=== PATIENT | female | born 1955 | race Two or more races ===

== ENCOUNTER 2016-08-11 01:32 | Observation (INO) | payer MEDICARE, MEDICAID ==
[~2016-08-11] VITALS: Ht 154.9 cm; Wt 87.1 kg
[~2016-08-11 01:32] MED LIST: ACET-285 PO; BUDE160A3 INH; CLOP75TA28 PO; ERGO1CAP6 PO; ESOM40CA39 PO; EST0625T PO; FLUT50SP13; FURO20TA PO; INSUINJ37 SUBCUT; INSUINJ47 SC; LEVO25TA6 PO; LORA-352 PO; LORA2TAB10 PO; LOSA25TA9 PO; MECL-87 PO; NITR400A5 AD; NOR10T PO; ROSU40TA PO
[2016-08-11 02:09] LABS: Basophils # (auto) 0 uL; Basophils % (auto) 0.4 % (0.0-2.0); Eosinophils # (auto) 0.2 uL; Eosinophils % (auto) 2.8 % (0.0-7.0); Hematocrit 35.4 % (36.0-46.0); Hemoglobin 11.8 g/dL (12.2-16.2); Lymphocytes # (auto) 2.7 uL; Lymphocytes % (auto) 42.3 % (10.0-50.0); Mean Corpuscular Hemoglobin 29.2 pg (28.0-32.0); Mean Corpuscular Hgb Conc. 33.3 g/dL (32.0-36.0); Mean Corpuscular Volume 87.6 fL (80.0-100.0); Mean Platelet Volume 8.7 fL (7.4-10.4); Monocytes # (auto) 0.5 uL; Monocytes % (auto) 7.5 % (0.0-12.0); Platelet Count (auto) 207 10^3/uL (140-450); Red Cell Distribution Width 14.4 % (11.6-16.0); White Blood Cell 6.5 10^3/uL (4.4-10.8)
[2016-08-11 02:26] LABS: Albumin 3.4 g/dL (3.4-5.0); Anion Gap 8 (5-15); Aspartate Aminotransferase 13 U/L (15-37); Blood Urea Nitrogen 9 mg/dL (7-18); Calcium 8.2 mg/dL (8.5-10.1); Carbon Dioxide 26 mmol/L (21-32); Chloride 111 mmol/L (98-107); GFR African American 112 mL/min; GFR Non-African American 93 mL/min; Glucose 101 mg/dL (74-106); Magnesium 2.3 mg/dL (1.6-2.6); Potassium 3.7 mmol/L (3.5-5.1); Sodium 145 mmol/L (136-145)
[2016-08-11 02:31] LABS: Alkaline Phosphatase 79 U/L (45-117); Bilirubin, Total 0.6 mg/dL (0.2-1.0); Total Protein 7.1 g/dL (6.4-8.2)
[2016-08-11 02:39] LABS: B-Type Natriuretic Peptide 81.2 pg/mL (0-100); Temperature: 21.9 C (20.0-25.0)
[2016-08-11 02:55] LABS: Urine RBC None Seen /hpf (0 - 4)
[2016-08-11 03:09] LABS: Urine Bilirubin Negative (Negative); Urine Blood Negative /uL (Negative); Urine Color Yellow (Yellow); Urine Glucose Normal (Normal); Urine Ketone Negative (Negative); Urine Mucus FEW (None Seen); Urine Nitrite Negative (Negative); Urine Squamous Epithelial Cell FEW /hpf (<5)
[2016-08-11] MEDS ORDERED: FUROSEMIDE 40 MG/4 ML VIAL IV ONE (07:00)
[2016-08-11] MEDS ORDERED: SODIUM CHLORIDE 0.9% 1,000 ML IV ONE (09:15)
[2016-08-11] MEDS ORDERED: PANTOPRAZOLE SODIUM 40 MG/10 ML VIAL IV ONE (10:00)
[2016-08-11 10:12] VITALS: BP 120/67
== END 2016-08-11 11:05 | disposition home or self-care (01) | DRG 204 ==
LOC: ER 01:32 → OVERFLOW 09:47 → ER 11:05
PROVIDERS: ADMIT Emergency Medicine; ATTEND Emergency Medicine
DX: R06.02 Shortness of breath (principal); I13.0 Hypertensive heart and chronic kidney disease with heart failure and stage 1 through stage 4 chronic kidney disease, or unspecified chronic kidney disease; F41.9 Anxiety disorder, unspecified; J45.909 Unspecified asthma, uncomplicated; N18.3 Chronic kidney disease, stage 3 (moderate); I50.9 Heart failure, unspecified; F32.9 Major depressive disorder, single episode, unspecified; I25.10 Atherosclerotic heart disease of native coronary artery without angina pectoris; E78.5 Hyperlipidemia, unspecified; Z90.49 Acquired absence of other specified parts of digestive tract; Z79.899 Other long term (current) drug therapy; Z79.01 Long term (current) use of anticoagulants; Z79.4 Long term (current) use of insulin; E11.22 Type 2 diabetes mellitus with diabetic chronic kidney disease; E78.00 Pure hypercholesterolemia, unspecified
CPT/HCPCS: 36415; 71010; 80053; 81001; 82962; 83735; 83880; 84443; 84484; 85025; 93005; 96361; 96374; C9113; G0378

== ENCOUNTER 2016-08-30 01:15 | Emergency (ER) | payer MEDICARE, MEDICAID ==
[~2016-08-30] VITALS: Ht 154.9 cm; Wt 87.1 kg
[2016-08-30 02:35] LABS: Basophils # (auto) 0 uL; Basophils % (auto) 0.3 % (0.0-2.0); Eosinophils # (auto) 0.2 uL; Eosinophils % (auto) 2.8 % (0.0-7.0); Hematocrit 39.6 % (36.0-46.0); Hemoglobin 13.2 g/dL (12.2-16.2); Lymphocytes # (auto) 2.9 uL; Lymphocytes % (auto) 40.4 % (10.0-50.0); Mean Corpuscular Hemoglobin 29.2 pg (28.0-32.0); Mean Corpuscular Hgb Conc. 33.4 g/dL (32.0-36.0); Mean Corpuscular Volume 87.4 fL (80.0-100.0); Mean Platelet Volume 8.7 fL (7.4-10.4); Monocytes # (auto) 0.5 uL; Monocytes % (auto) 6.7 % (0.0-12.0); Neutrophils # (auto) 3.6 uL; Neutrophils % (auto) 49.8 % (37.0-80.0); Platelet Count (auto) 248 10^3/uL (140-450); Red Cell Distribution Width 14.3 % (11.6-16.0); White Blood Cell 7.3 10^3/uL (4.4-10.8)
[2016-08-30 03:12] LABS: Albumin 4.1 g/dL (3.4-5.0); BUN/Creatinine Ratio 13.1; Calcium 9.1 mg/dL (8.5-10.1); Potassium 3.9 mmol/L (3.5-5.1)
[2016-08-30 03:14] LABS: Bilirubin, Total 0.7 mg/dL (0.2-1.0); Total Protein 8.2 g/dL (6.4-8.2)
[2016-08-30 03:18] LABS: Urine RBC None Seen /hpf (0 - 4)
[2016-08-30 03:25] LABS: Urine Bilirubin Negative (Negative); Urine Blood Negative /uL (Negative); Urine Color Yellow (Yellow); Urine Glucose Normal (Normal); Urine Ketone Negative (Negative); Urine Mucus FEW (None Seen); Urine Nitrite Negative (Negative); Urine Squamous Epithelial Cell FEW /hpf (<5); Urine Urobilinogen Normal (Negative)
[2016-08-30 04:49] VITALS: BP 116/64
== END 2016-08-30 05:02 | disposition left against medical advice (07) ==
LOC: ER 01:17
DX: R42 Dizziness and giddiness (principal); I10 Essential (primary) hypertension; Z53.21 Procedure and treatment not carried out due to patient leaving prior to being seen by health care provider
CPT/HCPCS: 36415; 80053; 81001; 85025; 93005; G0434

== ENCOUNTER → 2016-11-24 | Outpatient (CLI) | payer MEDICARE, MEDICAID | END | disposition home or self-care (01) | LOC: Rad HDHVI 12:59 | PROVIDERS: ATTEND Internal Medicine Cardiovascular Disease | DX: E78.2 Mixed hyperlipidemia (principal); R07.89 Other chest pain | CPT/HCPCS: 93306 ==

== ENCOUNTER → 2016-12-01 | Outpatient (CLI) | payer MEDICARE, MEDICAID ==
[~2016-12-01] VITALS: Ht 154.9 cm; Wt 87.5 kg
[~2016-12-01] MED LIST changes: +ADENOSINE 74 MG in GIVE UN-DILUTED 0 ML IV ONE; +ADENOSINE 90 MG/30 ML INJ IV ONE
== END | disposition home or self-care (01) ==
LOC: Rad HDHVI 09:07
PROVIDERS: ATTEND Internal Medicine Cardiovascular Disease
DX: I11.0 Hypertensive heart disease with heart failure (principal); I50.42 Chronic combined systolic (congestive) and diastolic (congestive) heart failure; I25.2 Old myocardial infarction; E11.9 Type 2 diabetes mellitus without complications
CPT/HCPCS: 78452; 93005; 96374; 96375; A9500; J0153

== ENCOUNTER → 2017-01-02 | Outpatient (CLI) | payer MEDICARE, MEDICAID ==
[~2017-01-02] MED LIST changes: -ADENOSINE 74 MG in GIVE UN-DILUTED 0 ML IV ONE; -ADENOSINE 90 MG/30 ML INJ IV ONE
[2017-01-02 10:00] VITALS: BP_SYST 119; BP_SYST 128; BP_DIAS 63
[2017-01-02 11:40] VITALS: BP 132/66
[2017-01-02 12:05] VITALS: BP 128/63
== END | disposition home or self-care (01) ==
LOC: CHF HDHVI 09:04
PROVIDERS: ATTEND Internal Medicine Cardiovascular Disease
DX: I11.0 Hypertensive heart disease with heart failure (principal); I50.33 Acute on chronic diastolic (congestive) heart failure; I25.118 Atherosclerotic heart disease of native coronary artery with other forms of angina pectoris; R06.02 Shortness of breath; E11.9 Type 2 diabetes mellitus without complications; Z95.5 Presence of coronary angioplasty implant and graft
CPT/HCPCS: 93005; G0166; G0463

== ENCOUNTER → 2017-01-03 | Outpatient (CLI) | payer MEDICARE, MEDICAID ==
[2017-01-03 09:13] VITALS: BP_SYST 135; BP_SYST 138; BP_DIAS 55; BP_DIAS 60
== END | disposition home or self-care (01) ==
LOC: CHF HDHVI 09:07
PROVIDERS: ATTEND Internal Medicine Cardiovascular Disease
DX: I25.118 Atherosclerotic heart disease of native coronary artery with other forms of angina pectoris (principal); I11.0 Hypertensive heart disease with heart failure; I50.23 Acute on chronic systolic (congestive) heart failure; R06.02 Shortness of breath; E11.9 Type 2 diabetes mellitus without complications; Z98.61 Coronary angioplasty status
CPT/HCPCS: G0166

== ENCOUNTER → 2017-01-04 | Outpatient (CLI) | payer MEDICARE, MEDICAID ==
[2017-01-04 09:11] VITALS: BP_SYST 126; BP_SYST 132; BP_DIAS 44; BP_DIAS 60
== END | disposition home or self-care (01) ==
LOC: CHF HDHVI 09:00
PROVIDERS: ATTEND Internal Medicine Cardiovascular Disease
DX: I25.118 Atherosclerotic heart disease of native coronary artery with other forms of angina pectoris (principal); I13.0 Hypertensive heart and chronic kidney disease with heart failure and stage 1 through stage 4 chronic kidney disease, or unspecified chronic kidney disease; I50.33 Acute on chronic diastolic (congestive) heart failure; N18.3 Chronic kidney disease, stage 3 (moderate); E11.9 Type 2 diabetes mellitus without complications; R06.02 Shortness of breath; Z98.61 Coronary angioplasty status; Z90.710 Acquired absence of both cervix and uterus
CPT/HCPCS: G0166

== ENCOUNTER → 2017-01-05 | Outpatient (CLI) | payer MEDICARE, MEDICAID ==
[2017-01-05 09:30] VITALS: BP_SYST 123; BP_SYST 132; BP_DIAS 53; BP_DIAS 56
== END | disposition home or self-care (01) ==
LOC: CHF HDHVI 09:04
PROVIDERS: ATTEND Internal Medicine Cardiovascular Disease
DX: I25.118 Atherosclerotic heart disease of native coronary artery with other forms of angina pectoris (principal); I11.0 Hypertensive heart disease with heart failure; I50.33 Acute on chronic diastolic (congestive) heart failure; R06.02 Shortness of breath; E11.9 Type 2 diabetes mellitus without complications; Z98.61 Coronary angioplasty status
CPT/HCPCS: G0166

== ENCOUNTER → 2017-01-09 | Outpatient (CLI) | payer MEDICARE, MEDICAID ==
[2017-01-09 09:22] VITALS: BP_SYST 108; BP_SYST 110; BP_DIAS 48; BP_DIAS 56
== END | disposition home or self-care (01) ==
LOC: CHF HDHVI 09:20
PROVIDERS: ATTEND Internal Medicine Cardiovascular Disease
DX: I25.118 Atherosclerotic heart disease of native coronary artery with other forms of angina pectoris (principal); I13.0 Hypertensive heart and chronic kidney disease with heart failure and stage 1 through stage 4 chronic kidney disease, or unspecified chronic kidney disease; I50.33 Acute on chronic diastolic (congestive) heart failure; N18.9 Chronic kidney disease, unspecified; E11.9 Type 2 diabetes mellitus without complications; R06.02 Shortness of breath; Z98.61 Coronary angioplasty status; Z95.1 Presence of aortocoronary bypass graft
CPT/HCPCS: G0166

== ENCOUNTER → 2017-01-10 | Outpatient (CLI) | payer MEDICARE, MEDICAID ==
[2017-01-10 09:09] VITALS: BP_SYST 119; BP_SYST 143; BP_DIAS 47; BP_DIAS 60
== END | disposition home or self-care (01) ==
LOC: CHF HDHVI 09:18
PROVIDERS: ATTEND Internal Medicine Cardiovascular Disease
DX: I25.118 Atherosclerotic heart disease of native coronary artery with other forms of angina pectoris (principal); E11.9 Type 2 diabetes mellitus without complications; I13.0 Hypertensive heart and chronic kidney disease with heart failure and stage 1 through stage 4 chronic kidney disease, or unspecified chronic kidney disease; I50.33 Acute on chronic diastolic (congestive) heart failure; N18.9 Chronic kidney disease, unspecified; R06.02 Shortness of breath; Z98.61 Coronary angioplasty status
CPT/HCPCS: G0166

== ENCOUNTER → 2017-01-11 | Outpatient (CLI) | payer MEDICARE, MEDICAID ==
[2017-01-11 08:56] VITALS: BP_SYST 130; BP_SYST 134; BP_DIAS 52; BP_DIAS 60
== END | disposition home or self-care (01) ==
LOC: CHF HDHVI 09:18
PROVIDERS: ATTEND Internal Medicine Cardiovascular Disease
DX: I25.118 Atherosclerotic heart disease of native coronary artery with other forms of angina pectoris (principal); I50.33 Acute on chronic diastolic (congestive) heart failure; E11.9 Type 2 diabetes mellitus without complications; R06.02 Shortness of breath; Z98.61 Coronary angioplasty status
CPT/HCPCS: G0166

== ENCOUNTER → 2017-01-12 | Outpatient (CLI) | payer MEDICARE, MEDICAID ==
[2017-01-12 08:59] VITALS: BP_SYST 126; BP_SYST 138; BP_DIAS 53; BP_DIAS 65
== END | disposition home or self-care (01) ==
LOC: CHF HDHVI 08:53
PROVIDERS: ATTEND Internal Medicine Cardiovascular Disease
DX: I25.118 Atherosclerotic heart disease of native coronary artery with other forms of angina pectoris (principal); I50.33 Acute on chronic diastolic (congestive) heart failure; E11.9 Type 2 diabetes mellitus without complications; R06.02 Shortness of breath; Z98.61 Coronary angioplasty status
CPT/HCPCS: G0166

== ENCOUNTER → 2017-01-19 | Outpatient (CLI) | payer MEDICARE, MEDICAID ==
[2017-01-19 09:02] VITALS: BP_SYST 119; BP_SYST 128; BP_DIAS 48; BP_DIAS 65
== END | disposition home or self-care (01) ==
LOC: CHF HDHVI 09:06
PROVIDERS: ATTEND Internal Medicine Cardiovascular Disease
DX: I25.118 Atherosclerotic heart disease of native coronary artery with other forms of angina pectoris (principal); I11.0 Hypertensive heart disease with heart failure; I50.33 Acute on chronic diastolic (congestive) heart failure; E11.9 Type 2 diabetes mellitus without complications; Z98.61 Coronary angioplasty status
CPT/HCPCS: G0166

== ENCOUNTER → 2017-01-20 | Outpatient (CLI) | payer MEDICARE, MEDICAID ==
[2017-01-20 09:02] VITALS: BP_SYST 117; BP_SYST 126; BP_DIAS 48; BP_DIAS 54
== END | disposition home or self-care (01) ==
LOC: CHF HDHVI 08:51
PROVIDERS: ATTEND Internal Medicine Cardiovascular Disease
DX: I25.118 Atherosclerotic heart disease of native coronary artery with other forms of angina pectoris (principal); I13.0 Hypertensive heart and chronic kidney disease with heart failure and stage 1 through stage 4 chronic kidney disease, or unspecified chronic kidney disease; I50.33 Acute on chronic diastolic (congestive) heart failure; N18.3 Chronic kidney disease, stage 3 (moderate); E11.9 Type 2 diabetes mellitus without complications; R06.02 Shortness of breath; Z95.5 Presence of coronary angioplasty implant and graft
CPT/HCPCS: G0166

== ENCOUNTER → 2017-01-24 | Outpatient (CLI) | payer MEDICARE, MEDICAID ==
[2017-01-24 09:10] VITALS: BP_SYST 122; BP_SYST 132; BP_DIAS 48; BP_DIAS 58
== END | disposition home or self-care (01) ==
LOC: CHF HDHVI 09:05
PROVIDERS: ATTEND Internal Medicine Cardiovascular Disease
DX: I25.118 Atherosclerotic heart disease of native coronary artery with other forms of angina pectoris (principal); I13.0 Hypertensive heart and chronic kidney disease with heart failure and stage 1 through stage 4 chronic kidney disease, or unspecified chronic kidney disease; I50.33 Acute on chronic diastolic (congestive) heart failure; N18.3 Chronic kidney disease, stage 3 (moderate); R06.02 Shortness of breath; E11.9 Type 2 diabetes mellitus without complications
CPT/HCPCS: G0166

== ENCOUNTER → 2017-01-25 | Outpatient (CLI) | payer MEDICARE, MEDICAID ==
[2017-01-25 09:04] VITALS: BP_SYST 114; BP_SYST 115; BP_DIAS 50; BP_DIAS 53
== END | disposition home or self-care (01) ==
LOC: CHF HDHVI 08:59
PROVIDERS: ATTEND Internal Medicine Cardiovascular Disease
DX: I25.118 Atherosclerotic heart disease of native coronary artery with other forms of angina pectoris (principal); I50.33 Acute on chronic diastolic (congestive) heart failure; E11.9 Type 2 diabetes mellitus without complications; R06.02 Shortness of breath; Z98.61 Coronary angioplasty status
CPT/HCPCS: G0166

== ENCOUNTER → 2017-01-26 | Outpatient (CLI) | payer MEDICARE, MEDICAID ==
[2017-01-26 09:08] VITALS: BP_SYST 117; BP_SYST 128; BP_DIAS 53
== END | disposition home or self-care (01) ==
LOC: CHF HDHVI 08:58
PROVIDERS: ATTEND Internal Medicine Cardiovascular Disease
DX: I25.118 Atherosclerotic heart disease of native coronary artery with other forms of angina pectoris (principal); I13.0 Hypertensive heart and chronic kidney disease with heart failure and stage 1 through stage 4 chronic kidney disease, or unspecified chronic kidney disease; I50.33 Acute on chronic diastolic (congestive) heart failure; N18.3 Chronic kidney disease, stage 3 (moderate); E11.9 Type 2 diabetes mellitus without complications; Z98.61 Coronary angioplasty status
CPT/HCPCS: G0166

== ENCOUNTER → 2017-01-27 | Outpatient (CLI) | payer MEDICARE, MEDICAID ==
[2017-01-27 09:09] VITALS: BP_SYST 116; BP_SYST 138; BP_DIAS 48; BP_DIAS 72
== END | disposition home or self-care (01) ==
LOC: CHF HDHVI 09:03
PROVIDERS: ATTEND Internal Medicine Cardiovascular Disease
DX: I25.118 Atherosclerotic heart disease of native coronary artery with other forms of angina pectoris (principal); I50.33 Acute on chronic diastolic (congestive) heart failure; E11.9 Type 2 diabetes mellitus without complications; Z98.61 Coronary angioplasty status
CPT/HCPCS: G0166

== ENCOUNTER → 2017-01-30 | Outpatient (CLI) | payer MEDICARE, MEDICAID ==
[2017-01-30 09:05] VITALS: BP_SYST 110; BP_SYST 129; BP_DIAS 50; BP_DIAS 55
== END | disposition home or self-care (01) ==
LOC: CHF HDHVI 08:59
PROVIDERS: ATTEND Internal Medicine Cardiovascular Disease
DX: I25.118 Atherosclerotic heart disease of native coronary artery with other forms of angina pectoris (principal); I13.0 Hypertensive heart and chronic kidney disease with heart failure and stage 1 through stage 4 chronic kidney disease, or unspecified chronic kidney disease; I50.33 Acute on chronic diastolic (congestive) heart failure; N18.3 Chronic kidney disease, stage 3 (moderate); R06.02 Shortness of breath; E11.9 Type 2 diabetes mellitus without complications
CPT/HCPCS: G0166

== ENCOUNTER → 2017-01-31 | Outpatient (CLI) | payer MEDICARE, MEDICAID ==
[2017-01-31 09:17] VITALS: BP_SYST 116; BP_SYST 124; BP_DIAS 46; BP_DIAS 49
== END | disposition home or self-care (01) ==
LOC: CHF HDHVI 08:58
PROVIDERS: ATTEND Internal Medicine Cardiovascular Disease
DX: I25.118 Atherosclerotic heart disease of native coronary artery with other forms of angina pectoris (principal); I13.0 Hypertensive heart and chronic kidney disease with heart failure and stage 1 through stage 4 chronic kidney disease, or unspecified chronic kidney disease; I50.33 Acute on chronic diastolic (congestive) heart failure; N18.3 Chronic kidney disease, stage 3 (moderate); Z98.61 Coronary angioplasty status; E11.9 Type 2 diabetes mellitus without complications
CPT/HCPCS: G0166

== ENCOUNTER → 2017-02-01 | Outpatient (CLI) | payer MEDICARE, MEDICAID ==
[2017-02-01 09:13] VITALS: BP_SYST 115; BP_SYST 126; BP_DIAS 53; BP_DIAS 60
== END | disposition home or self-care (01) ==
LOC: CHF HDHVI 09:10
PROVIDERS: ATTEND Internal Medicine Cardiovascular Disease
DX: I25.118 Atherosclerotic heart disease of native coronary artery with other forms of angina pectoris (principal); I13.0 Hypertensive heart and chronic kidney disease with heart failure and stage 1 through stage 4 chronic kidney disease, or unspecified chronic kidney disease; I50.33 Acute on chronic diastolic (congestive) heart failure; N18.3 Chronic kidney disease, stage 3 (moderate); E11.9 Type 2 diabetes mellitus without complications; R06.02 Shortness of breath; Z98.61 Coronary angioplasty status
CPT/HCPCS: G0166

== ENCOUNTER → 2017-02-02 | Outpatient (CLI) | payer MEDICARE, MEDICAID ==
[2017-02-02 10:15] VITALS: BP_SYST 114; BP_SYST 123; BP_DIAS 48; BP_DIAS 61
== END | disposition home or self-care (01) ==
LOC: CHF HDHVI 09:03
PROVIDERS: ATTEND Internal Medicine Cardiovascular Disease
DX: I25.118 Atherosclerotic heart disease of native coronary artery with other forms of angina pectoris (principal); I13.0 Hypertensive heart and chronic kidney disease with heart failure and stage 1 through stage 4 chronic kidney disease, or unspecified chronic kidney disease; I50.33 Acute on chronic diastolic (congestive) heart failure; N18.3 Chronic kidney disease, stage 3 (moderate); E11.9 Type 2 diabetes mellitus without complications; Z98.61 Coronary angioplasty status
CPT/HCPCS: G0166

== ENCOUNTER → 2017-02-03 | Outpatient (CLI) | payer MEDICARE, MEDICAID ==
[2017-02-03 09:09] VITALS: BP_SYST 122; BP_SYST 132; BP_DIAS 55; BP_DIAS 60
== END | disposition home or self-care (01) ==
LOC: CHF HDHVI 09:12
PROVIDERS: ATTEND Internal Medicine Cardiovascular Disease
DX: I25.118 Atherosclerotic heart disease of native coronary artery with other forms of angina pectoris (principal); I13.0 Hypertensive heart and chronic kidney disease with heart failure and stage 1 through stage 4 chronic kidney disease, or unspecified chronic kidney disease; I50.33 Acute on chronic diastolic (congestive) heart failure; N18.3 Chronic kidney disease, stage 3 (moderate); E11.9 Type 2 diabetes mellitus without complications; R06.02 Shortness of breath; Z98.61 Coronary angioplasty status
CPT/HCPCS: G0166

== ENCOUNTER → 2017-02-06 | Outpatient (CLI) | payer MEDICARE, MEDICAID ==
[2017-02-06 09:03] VITALS: BP_SYST 112; BP_SYST 116; BP_DIAS 42; BP_DIAS 52
== END | disposition home or self-care (01) ==
LOC: CHF HDHVI 09:09
PROVIDERS: ATTEND Internal Medicine Cardiovascular Disease
DX: I25.118 Atherosclerotic heart disease of native coronary artery with other forms of angina pectoris (principal); I13.0 Hypertensive heart and chronic kidney disease with heart failure and stage 1 through stage 4 chronic kidney disease, or unspecified chronic kidney disease; I50.33 Acute on chronic diastolic (congestive) heart failure; N18.3 Chronic kidney disease, stage 3 (moderate); Z98.61 Coronary angioplasty status; R06.02 Shortness of breath; E11.9 Type 2 diabetes mellitus without complications
CPT/HCPCS: G0166

== ENCOUNTER → 2017-02-07 | Outpatient (CLI) | payer MEDICARE, MEDICAID ==
[2017-02-07 09:11] VITALS: BP_SYST 110; BP_SYST 113; BP_DIAS 55; BP_DIAS 57
== END | disposition home or self-care (01) ==
LOC: CHF HDHVI 09:00
PROVIDERS: ATTEND Internal Medicine Cardiovascular Disease
DX: I25.118 Atherosclerotic heart disease of native coronary artery with other forms of angina pectoris (principal); I13.0 Hypertensive heart and chronic kidney disease with heart failure and stage 1 through stage 4 chronic kidney disease, or unspecified chronic kidney disease; I50.33 Acute on chronic diastolic (congestive) heart failure; N18.3 Chronic kidney disease, stage 3 (moderate); R06.02 Shortness of breath; E11.9 Type 2 diabetes mellitus without complications; Z98.61 Coronary angioplasty status
CPT/HCPCS: G0166

== ENCOUNTER → 2017-02-09 | Outpatient (CLI) | payer MEDICARE, MEDICAID ==
[2017-02-09 09:04] VITALS: BP_SYST 110; BP_SYST 115; BP_DIAS 49; BP_DIAS 58
== END | disposition home or self-care (01) ==
LOC: CHF HDHVI 08:59
PROVIDERS: ATTEND Internal Medicine Cardiovascular Disease
DX: I25.118 Atherosclerotic heart disease of native coronary artery with other forms of angina pectoris (principal); I13.0 Hypertensive heart and chronic kidney disease with heart failure and stage 1 through stage 4 chronic kidney disease, or unspecified chronic kidney disease; I50.33 Acute on chronic diastolic (congestive) heart failure; N18.3 Chronic kidney disease, stage 3 (moderate); E11.9 Type 2 diabetes mellitus without complications; Z98.61 Coronary angioplasty status
CPT/HCPCS: G0166

== ENCOUNTER → 2017-02-10 | Outpatient (CLI) | payer MEDICARE, MEDICAID ==
[2017-02-10 09:07] VITALS: BP_SYST 118; BP_DIAS 47; BP_DIAS 56
== END | disposition home or self-care (01) ==
LOC: CHF HDHVI 09:04
PROVIDERS: ATTEND Internal Medicine Cardiovascular Disease
DX: I25.118 Atherosclerotic heart disease of native coronary artery with other forms of angina pectoris (principal); I13.0 Hypertensive heart and chronic kidney disease with heart failure and stage 1 through stage 4 chronic kidney disease, or unspecified chronic kidney disease; I50.33 Acute on chronic diastolic (congestive) heart failure; N18.3 Chronic kidney disease, stage 3 (moderate); R06.02 Shortness of breath; E11.9 Type 2 diabetes mellitus without complications; Z98.61 Coronary angioplasty status
CPT/HCPCS: G0166

== ENCOUNTER → 2017-02-13 | Outpatient (CLI) | payer MEDICARE, MEDICAID ==
[2017-02-13 09:06] VITALS: BP_SYST 110; BP_DIAS 43; BP_DIAS 58
== END | disposition home or self-care (01) ==
LOC: CHF HDHVI 08:54
PROVIDERS: ATTEND Internal Medicine Cardiovascular Disease
DX: I25.118 Atherosclerotic heart disease of native coronary artery with other forms of angina pectoris (principal); I50.33 Acute on chronic diastolic (congestive) heart failure; E11.9 Type 2 diabetes mellitus without complications; Z98.61 Coronary angioplasty status
CPT/HCPCS: G0166

== ENCOUNTER → 2017-02-14 | Outpatient (CLI) | payer MEDICARE, MEDICAID ==
[2017-02-14 08:57] VITALS: BP_SYST 122; BP_DIAS 46; BP_DIAS 58
== END | disposition home or self-care (01) ==
LOC: CHF HDHVI 08:55
PROVIDERS: ATTEND Internal Medicine Cardiovascular Disease
DX: I25.118 Atherosclerotic heart disease of native coronary artery with other forms of angina pectoris (principal); I50.33 Acute on chronic diastolic (congestive) heart failure; E11.9 Type 2 diabetes mellitus without complications; Z95.1 Presence of aortocoronary bypass graft; Z98.61 Coronary angioplasty status
CPT/HCPCS: G0166

== ENCOUNTER → 2017-02-15 | Outpatient (CLI) | payer MEDICARE, MEDICAID ==
[2017-02-15 09:11] VITALS: BP_SYST 110; BP_SYST 114; BP_DIAS 55; BP_DIAS 56
== END | disposition home or self-care (01) ==
LOC: CHF HDHVI 08:56
PROVIDERS: ATTEND Internal Medicine Cardiovascular Disease
DX: I25.118 Atherosclerotic heart disease of native coronary artery with other forms of angina pectoris (principal); I50.33 Acute on chronic diastolic (congestive) heart failure; E11.9 Type 2 diabetes mellitus without complications; R06.02 Shortness of breath; Z98.61 Coronary angioplasty status; Z95.1 Presence of aortocoronary bypass graft
CPT/HCPCS: G0166

== ENCOUNTER → 2017-02-16 | Outpatient (CLI) | payer MEDICARE, MEDICAID ==
[2017-02-16 09:12] VITALS: BP_SYST 126; BP_SYST 135; BP_DIAS 61; BP_DIAS 65
== END | disposition home or self-care (01) ==
LOC: CHF HDHVI 09:02
PROVIDERS: ATTEND Internal Medicine Cardiovascular Disease
DX: I25.118 Atherosclerotic heart disease of native coronary artery with other forms of angina pectoris (principal); I13.0 Hypertensive heart and chronic kidney disease with heart failure and stage 1 through stage 4 chronic kidney disease, or unspecified chronic kidney disease; I50.33 Acute on chronic diastolic (congestive) heart failure; N18.3 Chronic kidney disease, stage 3 (moderate); E11.9 Type 2 diabetes mellitus without complications; R06.02 Shortness of breath; Z98.61 Coronary angioplasty status
CPT/HCPCS: G0166

== ENCOUNTER → 2017-02-17 | Outpatient (CLI) | payer MEDICARE, MEDICAID ==
[2017-02-17 09:08] VITALS: BP_SYST 121; BP_SYST 128; BP_DIAS 57; BP_DIAS 59
== END | disposition home or self-care (01) ==
LOC: CHF HDHVI 08:48
PROVIDERS: ATTEND Internal Medicine Cardiovascular Disease
DX: I25.118 Atherosclerotic heart disease of native coronary artery with other forms of angina pectoris (principal); I13.0 Hypertensive heart and chronic kidney disease with heart failure and stage 1 through stage 4 chronic kidney disease, or unspecified chronic kidney disease; I50.33 Acute on chronic diastolic (congestive) heart failure; N18.3 Chronic kidney disease, stage 3 (moderate); E11.9 Type 2 diabetes mellitus without complications; R06.02 Shortness of breath; Z98.61 Coronary angioplasty status
CPT/HCPCS: G0166

== ENCOUNTER → 2017-02-20 | Outpatient (CLI) | payer MEDICARE, MEDICAID ==
[2017-02-20 09:31] VITALS: BP_SYST 113; BP_SYST 137; BP_DIAS 61
== END | disposition home or self-care (01) ==
LOC: CHF HDHVI 09:07
PROVIDERS: ATTEND Internal Medicine Cardiovascular Disease
DX: I25.118 Atherosclerotic heart disease of native coronary artery with other forms of angina pectoris (principal); I13.0 Hypertensive heart and chronic kidney disease with heart failure and stage 1 through stage 4 chronic kidney disease, or unspecified chronic kidney disease; I50.33 Acute on chronic diastolic (congestive) heart failure; N18.3 Chronic kidney disease, stage 3 (moderate); R06.02 Shortness of breath; E11.9 Type 2 diabetes mellitus without complications; Z98.61 Coronary angioplasty status; Z95.1 Presence of aortocoronary bypass graft
CPT/HCPCS: G0166

== ENCOUNTER → 2017-02-21 | Outpatient (CLI) | payer MEDICARE, MEDICAID ==
[2017-02-21 09:01] VITALS: BP_SYST 113; BP_SYST 115; BP_DIAS 59; BP_DIAS 60
== END | disposition home or self-care (01) ==
LOC: CHF HDHVI 09:11
PROVIDERS: ATTEND Internal Medicine Cardiovascular Disease
DX: I25.118 Atherosclerotic heart disease of native coronary artery with other forms of angina pectoris (principal); I50.33 Acute on chronic diastolic (congestive) heart failure; I13.0 Hypertensive heart and chronic kidney disease with heart failure and stage 1 through stage 4 chronic kidney disease, or unspecified chronic kidney disease; R06.02 Shortness of breath; E11.9 Type 2 diabetes mellitus without complications; Z98.61 Coronary angioplasty status; N18.3 Chronic kidney disease, stage 3 (moderate); I50.9 Heart failure, unspecified
CPT/HCPCS: G0166

== ENCOUNTER → 2017-02-22 | Outpatient (CLI) | payer MEDICARE, MEDICAID ==
[2017-02-22 09:12] VITALS: BP_SYST 110; BP_SYST 112; BP_DIAS 49; BP_DIAS 60
[2017-02-22 10:15] VITALS: BP 126/65
== END | disposition home or self-care (01) ==
LOC: CHF HDHVI 09:04
PROVIDERS: ATTEND Internal Medicine Cardiovascular Disease
DX: I13.0 Hypertensive heart and chronic kidney disease with heart failure and stage 1 through stage 4 chronic kidney disease, or unspecified chronic kidney disease (principal); I25.118 Atherosclerotic heart disease of native coronary artery with other forms of angina pectoris; I50.33 Acute on chronic diastolic (congestive) heart failure; N18.3 Chronic kidney disease, stage 3 (moderate); E11.9 Type 2 diabetes mellitus without complications; R06.02 Shortness of breath; Z98.61 Coronary angioplasty status
CPT/HCPCS: G0166; G0463

== ENCOUNTER → 2017-04-26 | Outpatient (CLI) | payer MEDICARE, MEDICAID ==
[~2017-04-26] VITALS: Ht 154.9 cm; Wt 87.1 kg
[~2017-04-26] MED LIST changes: +ADENOSINE 73 MG in GIVE UN-DILUTED 0 ML IV ONE; +ADENOSINE 90 MG/30 ML INJ IV ONE
== END | disposition home or self-care (01) ==
LOC: Rad HDHVI 09:42
PROVIDERS: ATTEND Internal Medicine Cardiovascular Disease
DX: E11.9 Type 2 diabetes mellitus without complications (principal); N39.0 Urinary tract infection, site not specified; K81.9 Cholecystitis, unspecified
CPT/HCPCS: 78452; 93005; 96374; 96375; A9500; J0153

== ENCOUNTER → 2017-05-17 | Outpatient (CLI) | payer MEDICARE, MEDICAID ==
[~2017-05-17] MED LIST changes: -ADENOSINE 73 MG in GIVE UN-DILUTED 0 ML IV ONE; -ADENOSINE 90 MG/30 ML INJ IV ONE; +READI-CAT 2 (BARIUM SULF)(VANILLA SMOOTHIE) 450ML ONE
== END | disposition home or self-care (01) ==
LOC: Rad HDHVI 09:18
PROVIDERS: ATTEND Internal Medicine Cardiovascular Disease
DX: K44.9 Diaphragmatic hernia without obstruction or gangrene (principal); I70.0 Atherosclerosis of aorta; D71 Functional disorders of polymorphonuclear neutrophils
CPT/HCPCS: 71250

== ENCOUNTER → 2017-06-07 | Outpatient (CLI) | payer MEDICARE, MEDICAID ==
[~2017-06-07] MED LIST changes: -READI-CAT 2 (BARIUM SULF)(VANILLA SMOOTHIE) 450ML ONE
== END | disposition home or self-care (01) ==
LOC: Rad HDHVI 10:37
PROVIDERS: ATTEND Internal Medicine Cardiovascular Disease
DX: J32.9 Chronic sinusitis, unspecified (principal)
CPT/HCPCS: 70220

== ENCOUNTER → 2017-09-01 | Outpatient (CLI) | payer MEDICARE, MEDICAID ==
[2017-09-01 12:16] LABS: Basophils # (auto) 0 uL; Basophils % (auto) 0.2 % (0.0-2.0); Eosinophils # (auto) 0.1 uL; Eosinophils % (auto) 1.3 % (0.0-7.0); Hematocrit 37.7 % (36.0-46.0); Hemoglobin 12.6 g/dL (12.2-16.2); Lymphocytes % (auto) 36.3 % (10.0-50.0); Mean Corpuscular Hemoglobin 30.2 pg (28.0-32.0); Mean Corpuscular Hgb Conc. 33.5 g/dL (32.0-36.0); Mean Corpuscular Volume 90.1 fL (80.0-100.0); Monocytes # (auto) 0.4 uL; Monocytes % (auto) 6.9 % (0.0-12.0); Neutrophils # (auto) 3.1 uL; Neutrophils % (auto) 55.3 % (37.0-80.0); Nucleated Red Blood Cells % 0.1 %; Platelet Count (auto) 169 10^3/uL (140-450); Red Blood Cells 4.19 10^6/uL (4.0-5.20); Red Cell Distribution Width 15.2 % (11.8-14.3); White Blood Cell 5.6 10^3/uL (4.4-10.8)
[2017-09-01 12:19] LABS: Urine Blood Negative /uL (Negative); Urine Specific Gravity 1.027 (1.001-1.035)
[2017-09-01 12:48] LABS: Albumin 3.3 g/dL (3.4-5.0); BUN/Creatinine Ratio 25.8; Bilirubin, Total 0.3 mg/dL (0.2-1.0); Calcium 8.8 mg/dL (8.5-10.1); Potassium 3.9 mmol/L (3.5-5.1); Total Protein 7.3 g/dL (6.4-8.2)
[2017-09-01 12:59] LABS: Free T4 (Free Thyroxine) 1.11 ng/dL (0.89-1.76)
== END | disposition home or self-care (01) ==
LOC: LAB 08:55
PROVIDERS: ATTEND Internal Medicine Cardiovascular Disease
DX: E78.5 Hyperlipidemia, unspecified (principal); E03.9 Hypothyroidism, unspecified; I12.9 Hypertensive chronic kidney disease with stage 1 through stage 4 chronic kidney disease, or unspecified chronic kidney disease; E11.22 Type 2 diabetes mellitus with diabetic chronic kidney disease; N18.3 Chronic kidney disease, stage 3 (moderate); D63.1 Anemia in chronic kidney disease; E55.9 Vitamin D deficiency, unspecified; D51.9 Vitamin B12 deficiency anemia, unspecified; N39.0 Urinary tract infection, site not specified
CPT/HCPCS: 36415; 80053; 80061; 81003; 82306; 82607; 82962; 83036; 84439; 84443; 85025

== ENCOUNTER → 2017-09-04 | Outpatient (CLI) | payer MEDICARE, MEDICAID | END | disposition home or self-care (01) | LOC: Rad HDHVI 16:13 | PROVIDERS: ATTEND Internal Medicine Cardiovascular Disease | DX: R07.9 Chest pain, unspecified (principal); E11.22 Type 2 diabetes mellitus with diabetic chronic kidney disease; I12.9 Hypertensive chronic kidney disease with stage 1 through stage 4 chronic kidney disease, or unspecified chronic kidney disease; N18.3 Chronic kidney disease, stage 3 (moderate); E78.5 Hyperlipidemia, unspecified; N39.0 Urinary tract infection, site not specified | CPT/HCPCS: 93306 ==

== ENCOUNTER → 2017-11-14 | Outpatient (CLI) | payer MEDICARE, MEDICAID | END | disposition home or self-care (01) | LOC: Rad HDHVI 11:48 | PROVIDERS: ATTEND Internal Medicine Cardiovascular Disease | DX: M85.9 Disorder of bone density and structure, unspecified (principal); I13.0 Hypertensive heart and chronic kidney disease with heart failure and stage 1 through stage 4 chronic kidney disease, or unspecified chronic kidney disease; E11.22 Type 2 diabetes mellitus with diabetic chronic kidney disease; I50.9 Heart failure, unspecified; N18.3 Chronic kidney disease, stage 3 (moderate); E03.9 Hypothyroidism, unspecified; I25.10 Atherosclerotic heart disease of native coronary artery without angina pectoris; F41.9 Anxiety disorder, unspecified; E78.00 Pure hypercholesterolemia, unspecified; Z79.01 Long term (current) use of anticoagulants; Z79.4 Long term (current) use of insulin; Z79.899 Other long term (current) drug therapy | CPT/HCPCS: 77078 ==

== ENCOUNTER 2017-12-19 12:05 | Day surgery (SDC) | payer MEDICARE, MEDICAID ==
[~2017-12-19] VITALS: Ht 154.9 cm; Wt 88.6 kg
[~2017-12-19 12:05] MED LIST changes: -BUDE160A3 INH; +DOCU-137 PO; -ERGO1CAP6 PO; +FOLI1TAB6 PO; -LORA-352 PO; -MECL-87 PO; -NITR400A5 AD; -NOR10T PO
[2017-12-19] MEDS ORDERED: LIDOCAINE 2%HCL (LOCAL ANESTH.) INJ 10ml MDV ONE (12:40)
[2017-12-19] MEDS ORDERED: IOHEXOL 350 MG/ML 100ML IJ ONE (12:40)
[2017-12-19] MEDS ORDERED: ANGIOMAX 250 MG VIAL IV ONE (12:43)
[2017-12-19] MEDS ORDERED: MIDAZOLAM HCL 1MG/1ML-2 ML VIAL ONE (12:44)
[2017-12-19] MEDS ORDERED: SODIUM CHL 0.9% 0 ML ONE (12:44)
[2017-12-19] MEDS ORDERED: fentaNYL CITRATE 100 MCG/2 ML VL ONE (12:44)
== END 2017-12-19 15:38 | disposition home or self-care (01) ==
LOC: CATH 12:05
PROVIDERS: ATTEND Internal Medicine Cardiovascular Disease
DX: I25.10 Atherosclerotic heart disease of native coronary artery without angina pectoris (principal); R94.39 Abnormal result of other cardiovascular function study; I11.0 Hypertensive heart disease with heart failure; I50.9 Heart failure, unspecified; E11.9 Type 2 diabetes mellitus without complications; G47.30 Sleep apnea, unspecified; E78.5 Hyperlipidemia, unspecified; E66.9 Obesity, unspecified; Z68.36 Body mass index [BMI] 36.0-36.9, adult; Z88.0 Allergy status to penicillin; Z88.2 Allergy status to sulfonamides; Z88.1 Allergy status to other antibiotic agents; Z90.710 Acquired absence of both cervix and uterus; Q24.9 Congenital malformation of heart, unspecified; F41.9 Anxiety disorder, unspecified; F32.9 Major depressive disorder, single episode, unspecified; Z79.899 Other long term (current) drug therapy; Z98.62 Peripheral vascular angioplasty status
CPT/HCPCS: 93454; C1760; C1894; J1644; J2001; J2250; J3010; J7030; Q9967; 99152; A6257

== ENCOUNTER → 2017-12-28 | Outpatient (CLI) | payer MEDICARE, MEDICAID ==
[~2017-12-28] MED LIST changes: +READI-CAT 2 (BARIUM SULF)(VANILLA SMOOTHIE) 450ML ONE
[2017-12-28 14:23] LABS: Basophils # (auto) 0 uL; Basophils % (auto) 0.3 % (0.0-2.0); Eosinophils # (auto) 0.1 uL; Hematocrit 36.8 % (36.0-46.0); Hemoglobin 12.2 g/dL (12.2-16.2); Lymphocytes # (auto) 1.8 uL; Lymphocytes % (auto) 32.2 % (10.0-50.0); Mean Corpuscular Hemoglobin 30.2 pg (28.0-32.0); Mean Corpuscular Hgb Conc. 33.2 g/dL (32.0-36.0); Mean Corpuscular Volume 90.7 fL (80.0-100.0); Monocytes # (auto) 0.3 uL; Monocytes % (auto) 4.9 % (0.0-12.0); Neutrophils # (auto) 3.4 uL; Neutrophils % (auto) 61.6 % (37.0-80.0); Platelet Count (auto) 197 10^3/uL (140-450); Red Blood Cells 4.06 10^6/uL (4.0-5.20); Red Cell Distribution Width 14.2 % (11.8-14.3); White Blood Cell 5.6 10^3/uL (4.4-10.8)
[2017-12-28 14:34] LABS: Albumin 3.4 g/dL (3.4-5.0); BUN/Creatinine Ratio 18.7; Calcium 8.8 mg/dL (8.5-10.1); Potassium 4.1 mmol/L (3.5-5.1)
[2017-12-28 14:37] LABS: Bilirubin, Total 0.6 mg/dL (0.2-1.0); Total Protein 7.4 g/dL (6.4-8.2)
[2017-12-28 15:57] LABS: Urine Blood Negative /uL (Negative); Urine Specific Gravity 1.014 (1.001-1.035)
== END | disposition home or self-care (01) ==
LOC: Rad HDHVI 13:13
PROVIDERS: ATTEND Internal Medicine Cardiovascular Disease
DX: I13.0 Hypertensive heart and chronic kidney disease with heart failure and stage 1 through stage 4 chronic kidney disease, or unspecified chronic kidney disease (principal); E11.22 Type 2 diabetes mellitus with diabetic chronic kidney disease; I50.9 Heart failure, unspecified; N18.3 Chronic kidney disease, stage 3 (moderate); N39.0 Urinary tract infection, site not specified; I25.10 Atherosclerotic heart disease of native coronary artery without angina pectoris; E78.5 Hyperlipidemia, unspecified; E78.00 Pure hypercholesterolemia, unspecified; Z79.4 Long term (current) use of insulin; Z79.899 Other long term (current) drug therapy; Z79.01 Long term (current) use of anticoagulants; Z90.49 Acquired absence of other specified parts of digestive tract
CPT/HCPCS: 36415; 74176; 80053; 81003; 85025; 87086

== ENCOUNTER → 2018-08-13 | Outpatient (CLI) | payer MEDICARE, MEDICAID ==
[~2018-08-13] MED LIST changes: -DOCU-137 PO; +DOCU1CAP54 PO; +INSLANTI SC; +LOSA25TA40 PO; -LOSA25TA9 PO; -READI-CAT 2 (BARIUM SULF)(VANILLA SMOOTHIE) 450ML ONE
[2018-08-13 16:08] LABS: Basophils # (auto) 0 uL; Basophils % (auto) 0.3 % (0.0-2.0); Eosinophils # (auto) 0.1 uL; Eosinophils % (auto) 2.2 % (0.0-7.0); Hematocrit 38.6 % (36.0-46.0); Hemoglobin 12.7 g/dL (12.2-16.2); Lymphocytes # (auto) 1.6 uL; Lymphocytes % (auto) 30.4 % (10.0-50.0); Mean Corpuscular Hemoglobin 29.5 pg (28.0-32.0); Mean Corpuscular Volume 89.4 fL (80.0-100.0); Monocytes # (auto) 0.4 uL; Monocytes % (auto) 6.7 % (0.0-12.0); Neutrophils # (auto) 3.3 uL; Neutrophils % (auto) 60.4 % (37.0-80.0); Nucleated Red Blood Cells % 0.3 %; Platelet Count (auto) 161 10^3/uL (140-450); Red Blood Cells 4.31 10^6/uL (4.0-5.20); Red Cell Distribution Width 14.6 % (11.8-14.3); Urine Blood Negative /uL (Negative); Urine Specific Gravity 1.014 (1.001-1.035); White Blood Cell 5.4 10^3/uL (4.4-10.8)
[2018-08-13 16:19] LABS: Albumin 3.7 g/dL (3.4-5.0); Anion Gap 5 (5-15); Aspartate Aminotransferase 14 U/L (15-37); Blood Urea Nitrogen 17 mg/dL (7-18); Carbon Dioxide 24 mmol/L (21-32); Chloride 110 mmol/L (98-107); Glucose 159 mg/dL (74-106); Potassium 4.1 mmol/L (3.5-5.1); Sodium 139 mmol/L (136-145)
[2018-08-13 16:22] LABS: Alanine Aminotransferase 24 U/L (13-56); Alkaline Phosphatase 76 U/L (45-117); BUN/Creatinine Ratio 21.5; Bilirubin, Direct < 0.1 mg/dL (0-0.2); Bilirubin, Total 0.5 mg/dL (0.2-1.0); Cholesterol 184 mg/dL (< 200); GFR African American 95 mL/min; GFR Non-African American 79 mL/min; HDL Cholesterol 57 mg/dL (40-59); LDL Cholesterol 112 mg/dL (< 100); Total Protein 7.6 g/dL (6.4-8.2); Triglycerides 217 mg/dL (< 150)
== END | disposition home or self-care (01) ==
LOC: LAB 11:05
PROVIDERS: ATTEND Internal Medicine Cardiovascular Disease
DX: K74.1 Hepatic sclerosis (principal); E11.9 Type 2 diabetes mellitus without complications; N39.0 Urinary tract infection, site not specified; E03.9 Hypothyroidism, unspecified; D51.9 Vitamin B12 deficiency anemia, unspecified
CPT/HCPCS: 36415; 80048; 80061; 80076; 81003; 82306; 83036; 84443; 85025

== ENCOUNTER → 2018-08-16 | Outpatient (CLI) | payer MEDICARE, MEDICAID | END | disposition home or self-care (01) | LOC: Rad HDHVI 10:05 | PROVIDERS: ATTEND Internal Medicine Cardiovascular Disease | DX: I20.0 Unstable angina (principal); E11.40 Type 2 diabetes mellitus with diabetic neuropathy, unspecified; I11.0 Hypertensive heart disease with heart failure; I50.9 Heart failure, unspecified; E03.9 Hypothyroidism, unspecified | CPT/HCPCS: 93306 ==

== ENCOUNTER → 2018-10-31 | Outpatient (CLI) | payer MEDICARE, MEDICAID ==
[~2018-10-31] MED LIST changes: +IOHEXOL 350 MG/ML 100ML IJ ONE
--- NOTE | 2018-10-31 09:10 | NUR ---
[facility] PT ARRIVED TO [facility] FOR CT WITH IV CONTRAST. PT A/O X 3 0 DISTRESS V/S OBTAINED/
--- NOTE | 2018-10-31 09:20 | NUR ---
IV insertion IV access obtained, via clean sterile technique by inserting 20 gauge catheter at after attempt(s). IV secured properly. No trauma to site. Patient tolerated procedure well.
[2018-10-31 10:37] VITALS: BP 123/66
--- NOTE | 2018-10-31 10:50 | NUR ---
CT PT TAKEN BACK TO CT WITH TECH, O DISTRESS AMBULATED
--- NOTE | 2018-10-31 11:00 | NUR ---
IV removal IV DC'd with sterile technique, catheter fully intact. Pressure dressing applied to site. Patient tolerated procedure well. Discharged with aftercare instructions per MD. NOTE:
[2018-10-31 11:14] VITALS: BP 156/60
--- NOTE | 2018-10-31 11:14 | NUR ---
Discharge Instructions See e-MAR for any mediations given with this visit. Patient education given on disease process. Patient verbalized understanding. Previous labs reviewed. Patient discharged in stable condition with after care instructions and follow up appointment.
== END | disposition home or self-care (01) ==
LOC: Rad HDHVI 08:53
PROVIDERS: ATTEND Internal Medicine Cardiovascular Disease
DX: I67.2 Cerebral atherosclerosis (principal); R10.9 Unspecified abdominal pain; R07.9 Chest pain, unspecified; J84.10 Pulmonary fibrosis, unspecified; J98.11 Atelectasis; I70.0 Atherosclerosis of aorta; R94.4 Abnormal results of kidney function studies
CPT/HCPCS: 36415; 70450; 71260; 74177; 82565; G0463; Q9967

== ENCOUNTER → 2018-11-07 | Outpatient (CLI) | payer MEDICARE, MEDICAID ==
[~2018-11-07] VITALS: Ht 154.9 cm; Wt 85.3 kg
[~2018-11-07] MED LIST changes: +ADENOSINE 72 MG in GIVE UN-DILUTED 0 ML IV ONE; +ADENOSINE 90 MG/30 ML INJ IV ONE; +DEXTROSE 50% SYRINGE 50 ML IV ONE; -IOHEXOL 350 MG/ML 100ML IJ ONE
== END | disposition home or self-care (01) ==
LOC: Rad HDHVI 13:04
PROVIDERS: ATTEND Internal Medicine Cardiovascular Disease
DX: I70.201 Unspecified atherosclerosis of native arteries of extremities, right leg (principal); E11.9 Type 2 diabetes mellitus without complications; M25.512 Pain in left shoulder; D64.9 Anemia, unspecified; R07.89 Other chest pain; R51 Headache
CPT/HCPCS: 78452; 82962; 93005; 93926; 96374; 96375; A9500; J0153; J7042

== ENCOUNTER → 2018-12-11 | Outpatient (CLI) | payer MEDICARE, MEDICAID ==
[~2018-12-11] MED LIST changes: -ADENOSINE 72 MG in GIVE UN-DILUTED 0 ML IV ONE; -ADENOSINE 90 MG/30 ML INJ IV ONE; -DEXTROSE 50% SYRINGE 50 ML IV ONE; +FURO1TAB33 PO; -FURO20TA PO; +LOSA25TA38 PO; -LOSA25TA40 PO
[2018-12-11 15:58] LABS: Basophils # (auto) 0 uL; Basophils % (auto) 0.3 % (0.0-2.0); Eosinophils # (auto) 0.1 uL; Eosinophils % (auto) 1.9 % (0.0-7.0); Hematocrit 37.8 % (36.0-46.0); Hemoglobin 12.8 g/dL (12.2-16.2); Lymphocytes # (auto) 1.8 uL; Lymphocytes % (auto) 36.7 % (10.0-50.0); Mean Corpuscular Hemoglobin 30.5 pg (28.0-32.0); Mean Corpuscular Volume 89.6 fL (80.0-100.0); Monocytes # (auto) 0.3 uL; Monocytes % (auto) 6.8 % (0.0-12.0); Neutrophils # (auto) 2.6 uL; Neutrophils % (auto) 54.3 % (37.0-80.0); Nucleated Red Blood Cells % 0.1 %; Platelet Count (auto) 180 10^3/uL (140-450); Red Blood Cells 4.21 10^6/uL (4.0-5.20); Red Cell Distribution Width 14.9 % (11.8-14.3); White Blood Cell 4.9 10^3/uL (4.4-10.8)
[2018-12-11 16:06] LABS: Urine Blood Negative /uL (Negative); Urine Specific Gravity 1.025 (1.001-1.035)
== END | disposition home or self-care (01) ==
LOC: LAB 12:17
PROVIDERS: ATTEND Internal Medicine
DX: D64.9 Anemia, unspecified (principal); N39.0 Urinary tract infection, site not specified
CPT/HCPCS: 36415; 81003; 85025; 87086

== ENCOUNTER → 2019-01-15 | Outpatient (CLI) | payer MEDICARE, MEDICAID ==
[~2019-01-15] MED LIST changes: +AMLO10TA13 PO; +ASPI-404 PO; +CHOL20007 PO; +DOCU1CAP46 PO; -DOCU1CAP54 PO
[2019-01-15 15:54] LABS: Basophils # (auto) 0 uL; Basophils % (auto) 0.3 % (0.0-2.0); Eosinophils # (auto) 0.1 uL; Eosinophils % (auto) 2.3 % (0.0-7.0); Hematocrit 37.6 % (36.0-46.0); Hemoglobin 12.6 g/dL (12.2-16.2); Lymphocytes # (auto) 1.6 uL; Lymphocytes % (auto) 41.6 % (10.0-50.0); Mean Corpuscular Hemoglobin 30.1 pg (28.0-32.0); Mean Corpuscular Hgb Conc. 33.6 g/dL (32.0-36.0); Mean Corpuscular Volume 89.7 fL (80.0-100.0); Monocytes # (auto) 0.3 uL; Monocytes % (auto) 8.2 % (0.0-12.0); Neutrophils # (auto) 1.8 uL; Neutrophils % (auto) 47.6 % (37.0-80.0); Platelet Count (auto) 180 10^3/uL (140-450); Red Blood Cells 4.19 10^6/uL (4.0-5.20); Red Cell Distribution Width 14.7 % (11.8-14.3); White Blood Cell 3.8 10^3/uL (4.4-10.8)
[2019-01-15 16:01] LABS: Potassium 3.9 mmol/L (3.5-5.1)
[2019-01-15 16:08] LABS: Calcium 9.1 mg/dL (8.5-10.1)
[2019-01-15 16:17] LABS: INR 0.95 (0.9-1.15); Partial Thromboplastin Time 28.8 sec (23.64-32.05)
== END | disposition home or self-care (01) ==
LOC: Rad HDHVI 11:41
PROVIDERS: ATTEND Internal Medicine
DX: Z01.812 Encounter for preprocedural laboratory examination (principal); I70.0 Atherosclerosis of aorta; D64.9 Anemia, unspecified; R79.1 Abnormal coagulation profile; I11.0 Hypertensive heart disease with heart failure; I50.9 Heart failure, unspecified
CPT/HCPCS: 36415; 71046; 80048; 85025; 85610; 85730

== ENCOUNTER 2019-01-16 08:43 | Day surgery (SDC) | payer MEDICARE, MEDICAID ==
[~2019-01-16] VITALS: Ht 154.9 cm; Wt 85.3 kg
[~2019-01-16 08:43] MED LIST changes: -CLOP75TA28 PO; -FLUT50SP13; -INSUINJ37 SUBCUT; -LOSA25TA38 PO; -ROSU40TA PO
[2019-01-16] MEDS ORDERED: IOHEXOL 350 MG/ML 100ML IJ ONE ×2 (10:25→10:42)
[2019-01-16] MEDS ORDERED: LIDOCAINE 2%HCL (LOCAL ANESTH.) INJ 20ML MDV ONE ×2 (10:25→10:54)
[2019-01-16] MEDS ORDERED: MIDAZOLAM HCL 1MG/1ML-2 ML VIAL ONE (10:35)
[2019-01-16] MEDS ORDERED: ANGIOMAX 250 MG VIAL IV ONE (10:35)
[2019-01-16] MEDS ORDERED: fentaNYL CITRATE 100 MCG/2 ML VL ONE (10:35)
[2019-01-16] MEDS ORDERED: SODIUM CHL 0.9% 50 ML ONE ×2 (10:35→11:20)
[2019-01-16] MEDS ORDERED: ADENOSINE 90 MG/30 ML INJ IV ONE (11:20)
[2019-01-16] MEDS ORDERED: ACETAMINOPHEN 500 MG TAB PO ONE ×2 (13:27→13:30)
[2019-01-16] MEDS ORDERED: KETOROLAC TROMETH 60MG/2ML VIAL IM ONE (14:30)
[2019-01-16] MEDS ORDERED: FAMOTIDINE (10MG/ML) 2ML VL IV ONE (15:00)
== END 2019-01-16 15:35 | disposition home or self-care (01) ==
LOC: CATH 08:43
PROVIDERS: ATTEND Internal Medicine
DX: I25.10 Atherosclerotic heart disease of native coronary artery without angina pectoris (principal); E11.9 Type 2 diabetes mellitus without complications; G47.30 Sleep apnea, unspecified; E78.00 Pure hypercholesterolemia, unspecified; I27.20 Pulmonary hypertension, unspecified; F32.9 Major depressive disorder, single episode, unspecified; F41.9 Anxiety disorder, unspecified; I11.0 Hypertensive heart disease with heart failure; I50.9 Heart failure, unspecified; Z79.4 Long term (current) use of insulin; Z88.0 Allergy status to penicillin; Z88.2 Allergy status to sulfonamides; Z79.82 Long term (current) use of aspirin; Z79.899 Other long term (current) drug therapy
CPT/HCPCS: 93005; 93460; 93571; C1751; C1760; C1769; C1887; C1894; J0153; J0583; J1644; J1885; J2250; J3010; J3490; J7030; Q9967; 99152; 99153

== ENCOUNTER → 2019-04-02 | Outpatient (CLI) | payer MEDICARE, MEDICAID ==
[2019-04-02 12:20] VITALS: BP_SYST 130; BP_SYST 148; BP_DIAS 64; BP_DIAS 78
--- NOTE | 2019-04-02 12:20 | NUR ---
Signature Attestation Statement: I MEHDI MARTINEZ performed this procedure EECP on this patient. Addendum: 04/02/19 at 1220 by MEHDI MARTINEZ HDHI2 Amended: Links added.
--- NOTE | 2019-04-02 12:21 | NUR ---
Signature Attestation Statement: I MEHDI MARTINEZ performed this procedure EECP on this patient. Addendum: 04/02/19 at 1222 by MEHDI MARTINEZ HDHI2 Amended: Links added.
--- NOTE | 2019-04-02 12:21 | NUR ---
Signature Attestation Statement: I MEHDI MARTINEZ performed this procedure EECP on this patient. Addendum: 04/02/19 at 1221 by MEHDI MARTINEZ HDHI2 Amended: Links added.
--- NOTE | 2019-04-02 12:26 | NUR ---
Signature Attestation Statement: I MEHDI MARTINEZ performed this procedure EECP on this patient. Addendum: 04/02/19 at 1226 by MEHDI MARTINEZ HDHI2 Amended: Links added.
== END | disposition home or self-care (01) ==
LOC: CHF HDHVI 10:04
PROVIDERS: ATTEND Internal Medicine Cardiovascular Disease
DX: I25.118 Atherosclerotic heart disease of native coronary artery with other forms of angina pectoris (principal); I25.718 Atherosclerosis of autologous vein coronary artery bypass graft(s) with other forms of angina pectoris; I11.0 Hypertensive heart disease with heart failure; I50.23 Acute on chronic systolic (congestive) heart failure; E11.9 Type 2 diabetes mellitus without complications; J44.9 Chronic obstructive pulmonary disease, unspecified; D64.9 Anemia, unspecified; M54.16 Radiculopathy, lumbar region; I73.9 Peripheral vascular disease, unspecified; E11.59 Type 2 diabetes mellitus with other circulatory complications; E11.42 Type 2 diabetes mellitus with diabetic polyneuropathy; M25.519 Pain in unspecified shoulder; R42 Dizziness and giddiness
CPT/HCPCS: G0166

== ENCOUNTER → 2019-04-03 | Outpatient (CLI) | payer MEDICARE, MEDICAID ==
[2019-04-03 11:26] VITALS: BP 133/57
--- NOTE | 2019-04-03 11:26 | NUR ---
Signature Attestation Statement: I MEHDI MARTINEZ performed this procedure EECP on this patient. Addendum: 04/03/19 at 1127 by MEHDI MARTINEZ HDHI2 Amended: Links added.
[2019-04-03 11:41] VITALS: BP 149/75
--- NOTE | 2019-04-03 11:41 | NUR ---
Signature Attestation Statement: I MEHDI MARTINEZ performed this procedure EECP on this patient. Addendum: 04/03/19 at 1141 by MEHDI MARTINEZ HDHI2 Amended: Links added.
--- NOTE | 2019-04-03 11:42 | NUR ---
Signature Attestation Statement: I MEHDI MARTINEZ performed this procedure EECP on this patient. Addendum: 04/03/19 at 1142 by MEHDI MARTINEZ HDHI2 Amended: Links added.
== END | disposition home or self-care (01) ==
LOC: CHF HDHVI 10:16
PROVIDERS: ATTEND Internal Medicine Cardiovascular Disease
DX: I25.118 Atherosclerotic heart disease of native coronary artery with other forms of angina pectoris (principal); I25.718 Atherosclerosis of autologous vein coronary artery bypass graft(s) with other forms of angina pectoris; I11.0 Hypertensive heart disease with heart failure; I50.23 Acute on chronic systolic (congestive) heart failure; E11.9 Type 2 diabetes mellitus without complications; J44.9 Chronic obstructive pulmonary disease, unspecified; M54.16 Radiculopathy, lumbar region; D64.9 Anemia, unspecified; I73.9 Peripheral vascular disease, unspecified; E11.59 Type 2 diabetes mellitus with other circulatory complications; E11.42 Type 2 diabetes mellitus with diabetic polyneuropathy; M25.519 Pain in unspecified shoulder; R42 Dizziness and giddiness
CPT/HCPCS: G0166

== ENCOUNTER → 2019-04-04 | Outpatient (CLI) | payer MEDICARE, MEDICAID ==
[2019-04-04 10:59] VITALS: BP 110/55
--- NOTE | 2019-04-04 11:00 | NUR ---
Signature Attestation Statement: I MEHDI MARTINEZ performed this procedure EECP on this patient. Addendum: 04/04/19 at 1100 by MEHDI MARTINEZ HDHI2 Amended: Links added.
--- NOTE | 2019-04-04 11:01 | NUR ---
Signature Attestation Statement: I MEHDI MARTINEZ performed this procedure EECP on this patient. Addendum: 04/04/19 at 1101 by MEHDI MARTINEZ HDHI2 Amended: Links added.
[2019-04-04 11:34] VITALS: BP 136/64
--- NOTE | 2019-04-04 11:34 | NUR ---
Signature Attestation Statement: I MEHDI MARTINEZ performed this procedure EECP on this patient. Addendum: 04/04/19 at 1134 by MEHDI MARTINEZ HDHI2 Amended: Links added.
--- NOTE | 2019-04-04 11:35 | NUR ---
Signature Attestation Statement: I MEHDI MARTINEZ performed this procedure EECP on this patient. Addendum: 04/04/19 at 1135 by MEHDI MARTINEZ HDHI2 Amended: Links added.
== END | disposition home or self-care (01) ==
LOC: CHF HDHVI 10:05
PROVIDERS: ATTEND Internal Medicine Cardiovascular Disease
DX: I25.118 Atherosclerotic heart disease of native coronary artery with other forms of angina pectoris (principal); I25.718 Atherosclerosis of autologous vein coronary artery bypass graft(s) with other forms of angina pectoris; I11.0 Hypertensive heart disease with heart failure; I50.23 Acute on chronic systolic (congestive) heart failure; J44.9 Chronic obstructive pulmonary disease, unspecified; M54.16 Radiculopathy, lumbar region; D64.9 Anemia, unspecified; I73.9 Peripheral vascular disease, unspecified; E11.59 Type 2 diabetes mellitus with other circulatory complications; E11.42 Type 2 diabetes mellitus with diabetic polyneuropathy; M25.519 Pain in unspecified shoulder; R42 Dizziness and giddiness
CPT/HCPCS: G0166

== ENCOUNTER → 2019-04-05 | Outpatient (CLI) | payer MEDICARE, MEDICAID ==
[2019-04-05 10:38] VITALS: BP 127/60
--- NOTE | 2019-04-05 10:38 | NUR ---
Signature Attestation Statement: I MEHDI MARTINEZ performed this procedure EECP on this patient. Addendum: 04/05/19 at 1039 by MEHDI MARTINEZ HDHI2 Amended: Links added.
[2019-04-05 11:40] VITALS: BP 139/71
--- NOTE | 2019-04-05 11:40 | NUR ---
Signature Attestation Statement: I MEHDI MARTINEZ performed this procedure EECP on this patient. Addendum: 04/05/19 at 1140 by MEHDI MARTINEZ HDHI2 Amended: Links added.
--- NOTE | 2019-04-05 11:55 | NUR ---
Signature Attestation Statement: I MEHDI MARTINEZ performed this procedure EECP on this patient. Addendum: 04/05/19 at 1155 by MEHDI MARTINEZ HDHI2 Amended: Links added.
== END | disposition home or self-care (01) ==
LOC: CHF HDHVI 10:24
PROVIDERS: ATTEND Internal Medicine Cardiovascular Disease
DX: I25.118 Atherosclerotic heart disease of native coronary artery with other forms of angina pectoris (principal); I11.0 Hypertensive heart disease with heart failure; I50.23 Acute on chronic systolic (congestive) heart failure; I25.718 Atherosclerosis of autologous vein coronary artery bypass graft(s) with other forms of angina pectoris; R42 Dizziness and giddiness; J44.9 Chronic obstructive pulmonary disease, unspecified; M54.16 Radiculopathy, lumbar region; D64.9 Anemia, unspecified; I73.9 Peripheral vascular disease, unspecified; E11.42 Type 2 diabetes mellitus with diabetic polyneuropathy; E11.59 Type 2 diabetes mellitus with other circulatory complications; M25.519 Pain in unspecified shoulder
CPT/HCPCS: G0166

== ENCOUNTER → 2019-04-08 | Outpatient (CLI) | payer MEDICARE, MEDICAID ==
[2019-04-08 11:33] VITALS: BP_SYST 112; BP_SYST 134; BP_DIAS 59; BP_DIAS 66
--- NOTE | 2019-04-08 11:33 | NUR ---
Signature Attestation Statement: I MEHDI MARTINEZ performed this procedure EECP on this patient. Addendum: 04/08/19 at 1133 by MEHDI MARTINEZ HDHI2 Amended: Links added.
--- NOTE | 2019-04-08 11:34 | NUR ---
Signature Attestation Statement: I MEHDI MARTINEZ performed this procedure EECP on this patient. Addendum: 04/08/19 at 1134 by MHEDI MARTINEZ HDHI2 Amended: Links added.
--- NOTE | 2019-04-08 11:34 | NUR ---
Signature Attestation Statement: I MEHDI MARTINEZ performed this procedure EECP on this patient. Addendum: 04/08/19 at 1135 by MEHDI MARTINEZ HDHI2 Amended: Links added.
--- NOTE | 2019-04-08 11:40 | NUR ---
Signature Attestation Statement: I MEHDI MARTINEZ performed this procedure EECP on this patient. Addendum: 04/08/19 at 1141 by MEHDI MARTINEZ HDHI2 Amended: Links added.
== END | disposition home or self-care (01) ==
LOC: CHF HDHVI 10:11
PROVIDERS: ATTEND Internal Medicine Cardiovascular Disease
DX: I25.118 Atherosclerotic heart disease of native coronary artery with other forms of angina pectoris (principal); I25.718 Atherosclerosis of autologous vein coronary artery bypass graft(s) with other forms of angina pectoris; I73.9 Peripheral vascular disease, unspecified; E11.21 Type 2 diabetes mellitus with diabetic nephropathy; J44.9 Chronic obstructive pulmonary disease, unspecified; M54.16 Radiculopathy, lumbar region; D64.9 Anemia, unspecified; E11.59 Type 2 diabetes mellitus with other circulatory complications; E11.42 Type 2 diabetes mellitus with diabetic polyneuropathy; M25.519 Pain in unspecified shoulder; R06.02 Shortness of breath; R42 Dizziness and giddiness; I13.0 Hypertensive heart and chronic kidney disease with heart failure and stage 1 through stage 4 chronic kidney disease, or unspecified chronic kidney disease; E11.22 Type 2 diabetes mellitus with diabetic chronic kidney disease; N18.9 Chronic kidney disease, unspecified; I50.23 Acute on chronic systolic (congestive) heart failure; Z88.0 Allergy status to penicillin; Z88.1 Allergy status to other antibiotic agents; Z90.710 Acquired absence of both cervix and uterus; Z90.89 Acquired absence of other organs; Z79.4 Long term (current) use of insulin
CPT/HCPCS: G0166

== ENCOUNTER → 2019-04-09 | Outpatient (CLI) | payer MEDICARE, MEDICAID ==
[2019-04-09 11:28] VITALS: BP 130/64
--- NOTE | 2019-04-09 11:28 | NUR ---
Signature Attestation Statement: I MEHDI MARTINEZ performed this procedure EECP on this patient. Addendum: 04/09/19 at 1129 by MEHDI MARTINEZ HDHI2 Amended: Links added.
[2019-04-09 11:29] VITALS: BP 129/64
--- NOTE | 2019-04-09 11:29 | NUR ---
Signature Attestation Statement: I MEHDI MARTINEZ performed this procedure EECP on this patient. Addendum: 04/09/19 at 1130 by MEHDI MARTINEZ HDHI2 Amended: Links added.
--- NOTE | 2019-04-09 11:34 | NUR ---
Signature Attestation Statement: I MEHDI MARTINEZ performed this procedure EECP on this patient. Addendum: 04/09/19 at 1135 by MEHDI MARTINEZ HDHI2 Amended: Links added.
== END | disposition home or self-care (01) ==
LOC: CHF HDHVI 11:16
PROVIDERS: ATTEND Internal Medicine Cardiovascular Disease
DX: I25.118 Atherosclerotic heart disease of native coronary artery with other forms of angina pectoris (principal); I25.718 Atherosclerosis of autologous vein coronary artery bypass graft(s) with other forms of angina pectoris; I50.23 Acute on chronic systolic (congestive) heart failure; I73.9 Peripheral vascular disease, unspecified; E11.21 Type 2 diabetes mellitus with diabetic nephropathy; J44.9 Chronic obstructive pulmonary disease, unspecified; M54.16 Radiculopathy, lumbar region; D64.9 Anemia, unspecified; E11.59 Type 2 diabetes mellitus with other circulatory complications; E11.42 Type 2 diabetes mellitus with diabetic polyneuropathy; M25.519 Pain in unspecified shoulder; R06.02 Shortness of breath; R42 Dizziness and giddiness; I13.0 Hypertensive heart and chronic kidney disease with heart failure and stage 1 through stage 4 chronic kidney disease, or unspecified chronic kidney disease; E11.22 Type 2 diabetes mellitus with diabetic chronic kidney disease; N18.9 Chronic kidney disease, unspecified
CPT/HCPCS: G0166

== ENCOUNTER → 2019-04-10 | Outpatient (CLI) | payer MEDICARE, MEDICAID ==
[2019-04-10 11:31] VITALS: BP 131/57
[2019-04-10 11:33] VITALS: BP 138/67
--- NOTE | 2019-04-10 11:33 | NUR ---
Signature Attestation Statement: I MEHDI MARTINEZ performed this procedure EECP on this patient. Addendum: 04/10/19 at 1133 by MEHDI MARTINEZ HDHI2 Amended: Links added.
--- NOTE | 2019-04-10 11:33 | NUR ---
Signature Attestation Statement: I MEHDI MARTINEZ performed this procedure EECP on this patient. Addendum: 04/10/19 at 1134 by MEHDI MARTINEZ HDHI2 Amended: Links added.
--- NOTE | 2019-04-10 11:39 | NUR ---
Signature Attestation Statement: I MEHDI MARTINEZ performed this procedure EECP on this patient. Addendum: 04/10/19 at 1139 by MEHDI MARTINEZ HDHI2 Amended: Links added.
== END | disposition home or self-care (01) ==
LOC: CHF HDHVI 10:04
PROVIDERS: ATTEND Internal Medicine Cardiovascular Disease
DX: I25.118 Atherosclerotic heart disease of native coronary artery with other forms of angina pectoris (principal); I11.0 Hypertensive heart disease with heart failure; I50.23 Acute on chronic systolic (congestive) heart failure; I25.718 Atherosclerosis of autologous vein coronary artery bypass graft(s) with other forms of angina pectoris; E11.9 Type 2 diabetes mellitus without complications; J44.9 Chronic obstructive pulmonary disease, unspecified; M54.16 Radiculopathy, lumbar region; D64.9 Anemia, unspecified; I73.9 Peripheral vascular disease, unspecified; E11.59 Type 2 diabetes mellitus with other circulatory complications; E11.42 Type 2 diabetes mellitus with diabetic polyneuropathy; M25.519 Pain in unspecified shoulder; R42 Dizziness and giddiness
CPT/HCPCS: G0166

== ENCOUNTER → 2019-04-11 | Outpatient (CLI) | payer MEDICARE, MEDICAID ==
[2019-04-11 11:52] VITALS: BP 119/53
[2019-04-11 11:53] VITALS: BP 127/69
--- NOTE | 2019-04-11 11:53 | NUR ---
Signature Attestation Statement: I MEHDI MARTINEZ performed this procedure EECP on this patient. Addendum: 04/11/19 at 1153 by MEHDI MARTINEZ HDHI2 Amended: Links added.
--- NOTE | 2019-04-11 11:53 | NUR ---
Signature Attestation Statement: I MEHDI MARTINEZ performed this procedure EECP on this patient. Addendum: 04/11/19 at 1154 by MEHDI MARTINEZ HDHI2 Amended: Links added.
--- NOTE | 2019-04-11 11:56 | NUR ---
Signature Attestation Statement: I MEHDI MARTINEZ performed this procedure EECP on this patient. Addendum: 04/11/19 at 1156 by MEHDI MARTINEZ HDHI2 Amended: Links added.
--- NOTE | 2019-04-11 12:04 | NUR ---
Signature Attestation Statement: I MEHDI MARTINEZ performed this procedure EECP on this patient. Addendum: 04/11/19 at 1205 by MEHDI MARTINEZ HDHI2 Amended: Links added.
== END | disposition home or self-care (01) ==
LOC: CHF HDHVI 10:07
PROVIDERS: ATTEND Internal Medicine Cardiovascular Disease
DX: I25.718 Atherosclerosis of autologous vein coronary artery bypass graft(s) with other forms of angina pectoris (principal); I25.118 Atherosclerotic heart disease of native coronary artery with other forms of angina pectoris; I11.0 Hypertensive heart disease with heart failure; I50.23 Acute on chronic systolic (congestive) heart failure; E11.9 Type 2 diabetes mellitus without complications; J44.9 Chronic obstructive pulmonary disease, unspecified; M54.16 Radiculopathy, lumbar region; D64.9 Anemia, unspecified; I73.9 Peripheral vascular disease, unspecified; E11.59 Type 2 diabetes mellitus with other circulatory complications; E11.42 Type 2 diabetes mellitus with diabetic polyneuropathy; M25.519 Pain in unspecified shoulder; R42 Dizziness and giddiness
CPT/HCPCS: G0166

== ENCOUNTER → 2019-04-12 | Outpatient (CLI) | payer MEDICARE, MEDICAID ==
[2019-04-12 10:54] VITALS: BP 130/69
--- NOTE | 2019-04-12 10:54 | NUR ---
Signature Attestation Statement: I MEHDI MARTINEZ performed this procedure EECP on this patient. Addendum: 04/12/19 at 1055 by MEHDI MARTINEZ HDHI2 Amended: Links added.
--- NOTE | 2019-04-12 10:56 | NUR ---
Signature Attestation Statement: I MEHDI MARTINEZ performed this procedure EECP on this patient. Addendum: 04/12/19 at 1057 by MEHDI MARTINEZ HDHI2 Amended: Links added.
[2019-04-12 11:19] VITALS: BP 144/67
--- NOTE | 2019-04-12 11:19 | NUR ---
Signature Attestation Statement: I MEHDI MARTINEZ performed this procedure EECP on this patient. Addendum: 04/12/19 at 1119 by MEHDI MARTINEZ HDHI2 Amended: Links added.
--- NOTE | 2019-04-12 11:27 | NUR ---
Signature Attestation Statement: I MEHDI MARTINEZ performed this procedure EECP on this patient. Addendum: 04/12/19 at 1127 by MEHDI MARTINEZ HDHI2 Amended: Links added.
== END | disposition home or self-care (01) ==
LOC: CHF HDHVI 10:09
PROVIDERS: ATTEND Internal Medicine Cardiovascular Disease
DX: I25.118 Atherosclerotic heart disease of native coronary artery with other forms of angina pectoris (principal); I25.718 Atherosclerosis of autologous vein coronary artery bypass graft(s) with other forms of angina pectoris; I73.9 Peripheral vascular disease, unspecified; E11.21 Type 2 diabetes mellitus with diabetic nephropathy; E11.59 Type 2 diabetes mellitus with other circulatory complications; E11.42 Type 2 diabetes mellitus with diabetic polyneuropathy; E11.22 Type 2 diabetes mellitus with diabetic chronic kidney disease; I13.0 Hypertensive heart and chronic kidney disease with heart failure and stage 1 through stage 4 chronic kidney disease, or unspecified chronic kidney disease; N18.9 Chronic kidney disease, unspecified; J44.9 Chronic obstructive pulmonary disease, unspecified; I50.23 Acute on chronic systolic (congestive) heart failure; D64.9 Anemia, unspecified; M54.16 Radiculopathy, lumbar region; M25.519 Pain in unspecified shoulder; R06.02 Shortness of breath; R42 Dizziness and giddiness
CPT/HCPCS: G0166

== ENCOUNTER → 2019-04-15 | Outpatient (CLI) | payer MEDICARE, MEDICAID ==
[2019-04-15 13:04] VITALS: BP 132/66
--- NOTE | 2019-04-15 13:04 | NUR ---
Signature Attestation Statement: Cori DICKSON performed this procedure EECP on this patient. Addendum: 04/15/19 at 1305 by NEVAEH DICKSON HDHI2 Amended: Links added.
[2019-04-15 13:05] VITALS: BP 143/76
--- NOTE | 2019-04-15 13:06 | NUR ---
Signature Attestation Statement: Cori DICKSON performed this procedure EECP on this patient. Addendum: 04/15/19 at 1306 by NEVAEH DICKSON HDHI2 Amended: Links added.
--- NOTE | 2019-04-15 13:07 | NUR ---
Signature Attestation Statement: Cori DICKSON performed this procedure EECP on this patient. Addendum: 04/15/19 at 1308 by NEVAEH DICKSON HDHI2 Amended: Links added.
--- NOTE | 2019-04-15 13:11 | NUR ---
Signature Attestation Statement: Cori DICKSON performed this procedure EECP on this patient. Addendum: 04/15/19 at 1312 by NEVAEH DICKSON HDHI2 Amended: Links added.
== END | disposition home or self-care (01) ==
LOC: CHF HDHVI 10:05
PROVIDERS: ATTEND Internal Medicine Cardiovascular Disease
DX: I25.118 Atherosclerotic heart disease of native coronary artery with other forms of angina pectoris (principal); I13.0 Hypertensive heart and chronic kidney disease with heart failure and stage 1 through stage 4 chronic kidney disease, or unspecified chronic kidney disease; E11.22 Type 2 diabetes mellitus with diabetic chronic kidney disease; N18.9 Chronic kidney disease, unspecified; I50.23 Acute on chronic systolic (congestive) heart failure; J44.9 Chronic obstructive pulmonary disease, unspecified; M54.16 Radiculopathy, lumbar region; D64.9 Anemia, unspecified; I73.9 Peripheral vascular disease, unspecified; E11.59 Type 2 diabetes mellitus with other circulatory complications; E11.42 Type 2 diabetes mellitus with diabetic polyneuropathy; M25.519 Pain in unspecified shoulder; R06.02 Shortness of breath; R42 Dizziness and giddiness
CPT/HCPCS: G0166

== ENCOUNTER → 2019-04-22 | Outpatient (CLI) | payer MEDICARE, MEDICAID ==
[2019-04-22 11:13] VITALS: BP 129/64
--- NOTE | 2019-04-22 11:31 | NUR ---
Signature Attestation Statement: I MEHDI MARTINEZ performed this procedure EECP on this patient. Addendum: 04/22/19 at 1132 by MEHDI MARTINEZ HDHI2 Amended: Links added.
--- NOTE | 2019-04-22 11:33 | NUR ---
Signature Attestation Statement: I MEHDI MARTINEZ performed this procedure EECP on this patient. Addendum: 04/22/19 at 1133 by MEHDI MARTINEZ HDHI2 Amended: Links added.
[2019-04-22 11:43] VITALS: BP 139/67
--- NOTE | 2019-04-22 11:43 | NUR ---
Signature Attestation Statement: I MEHDI MARTINEZ performed this procedure EECP on this patient. Addendum: 04/22/19 at 1143 by MEHDI MARTINEZ HDHI2 Amended: Links added.
--- NOTE | 2019-04-22 11:44 | NUR ---
Signature Attestation Statement: I MEHDI MARTINEZ performed this procedure EECP on this patient. Addendum: 04/22/19 at 1144 by MEHDI MARTINEZ HDHI2 Amended: Links added.
== END | disposition home or self-care (01) ==
LOC: CHF HDHVI 10:10
PROVIDERS: ATTEND Internal Medicine Cardiovascular Disease
DX: I25.118 Atherosclerotic heart disease of native coronary artery with other forms of angina pectoris (principal); I50.23 Acute on chronic systolic (congestive) heart failure; J44.9 Chronic obstructive pulmonary disease, unspecified; M54.16 Radiculopathy, lumbar region; D64.9 Anemia, unspecified; I73.9 Peripheral vascular disease, unspecified; E11.59 Type 2 diabetes mellitus with other circulatory complications; E11.42 Type 2 diabetes mellitus with diabetic polyneuropathy; M25.519 Pain in unspecified shoulder; R06.02 Shortness of breath; R42 Dizziness and giddiness
CPT/HCPCS: G0166

== ENCOUNTER → 2019-04-24 | Outpatient (CLI) | payer MEDICARE, MEDICAID ==
[2019-04-24 10:40] VITALS: BP 125/57
--- NOTE | 2019-04-24 10:40 | NUR ---
Signature Attestation Statement: I MEHDI MARTINEZ performed this procedure EECP on this patient. Addendum: 04/24/19 at 1041 by MEHDI MARTINEZ HDHI2 Amended: Links added.
--- NOTE | 2019-04-24 10:41 | NUR ---
Signature Attestation Statement: I MEHDI MARTINEZ performed this procedure EECP on this patient. Addendum: 04/24/19 at 1042 by MEHDI MARTINEZ HDHI2 Amended: Links added.
--- NOTE | 2019-04-24 11:19 | NUR ---
Signature Attestation Statement: I MEHDI MARTINEZ performed this procedure EECP on this patient. Addendum: 04/24/19 at 1120 by MEHDI MARTINEZ HDHI2 Amended: Links added.
[2019-04-24 11:20] VITALS: BP 136/64
--- NOTE | 2019-04-24 11:20 | NUR ---
Signature Attestation Statement: I MEHDI MARTINEZ performed this procedure EECP on this patient. Addendum: 04/24/19 at 1121 by MEHDI MARTINEZ HDHI2 Amended: Links added.
== END | disposition home or self-care (01) ==
LOC: CHF HDHVI 10:06
PROVIDERS: ATTEND Internal Medicine Cardiovascular Disease
DX: I25.118 Atherosclerotic heart disease of native coronary artery with other forms of angina pectoris (principal); I13.0 Hypertensive heart and chronic kidney disease with heart failure and stage 1 through stage 4 chronic kidney disease, or unspecified chronic kidney disease; E11.22 Type 2 diabetes mellitus with diabetic chronic kidney disease; N18.9 Chronic kidney disease, unspecified; I50.23 Acute on chronic systolic (congestive) heart failure; J44.9 Chronic obstructive pulmonary disease, unspecified; M54.16 Radiculopathy, lumbar region; D64.9 Anemia, unspecified; I73.9 Peripheral vascular disease, unspecified; E11.59 Type 2 diabetes mellitus with other circulatory complications; E11.42 Type 2 diabetes mellitus with diabetic polyneuropathy; M25.519 Pain in unspecified shoulder; R06.02 Shortness of breath; R42 Dizziness and giddiness
CPT/HCPCS: G0166

== ENCOUNTER → 2019-04-25 | Outpatient (CLI) | payer MEDICARE, MEDICAID ==
[2019-04-25 10:35] VITALS: BP 130/53
--- NOTE | 2019-04-25 10:36 | NUR ---
Signature Attestation Statement: I MEHDI MARTINEZ performed this procedure EECP on this patient. Addendum: 04/25/19 at 1036 by MEHDI MARTINEZ HDHI2 Amended: Links added.
--- NOTE | 2019-04-25 10:37 | NUR ---
Signature Attestation Statement: I MEHDI MARTINEZ performed this procedure EECP on this patient. Addendum: 04/25/19 at 1037 by MEHDI MARTINEZ HDHI2 Amended: Links added.
[2019-04-25 11:22] VITALS: BP 146/71
--- NOTE | 2019-04-25 11:22 | NUR ---
Signature Attestation Statement: I MEHDI MARTINEZ performed this procedure EECP on this patient. Addendum: 04/25/19 at 1122 by MEHDI MARTINEZ HDHI2 Amended: Links added.
--- NOTE | 2019-04-25 11:35 | NUR ---
Signature Attestation Statement: I MEHDI MARTINEZ performed this procedure EECP on this patient. Addendum: 04/25/19 at 1136 by MEHDI MARTINEZ HDHI2 Amended: Links added.
== END | disposition home or self-care (01) ==
LOC: CHF HDHVI 10:15
PROVIDERS: ATTEND Internal Medicine Cardiovascular Disease
DX: I25.118 Atherosclerotic heart disease of native coronary artery with other forms of angina pectoris (principal); I50.23 Acute on chronic systolic (congestive) heart failure; E11.59 Type 2 diabetes mellitus with other circulatory complications; E11.51 Type 2 diabetes mellitus with diabetic peripheral angiopathy without gangrene; E11.42 Type 2 diabetes mellitus with diabetic polyneuropathy; E11.22 Type 2 diabetes mellitus with diabetic chronic kidney disease; I13.0 Hypertensive heart and chronic kidney disease with heart failure and stage 1 through stage 4 chronic kidney disease, or unspecified chronic kidney disease; N18.9 Chronic kidney disease, unspecified; J44.9 Chronic obstructive pulmonary disease, unspecified; D64.9 Anemia, unspecified; M25.519 Pain in unspecified shoulder; M54.16 Radiculopathy, lumbar region
CPT/HCPCS: G0166

== ENCOUNTER → 2019-04-26 | Outpatient (CLI) | payer MEDICARE, MEDICAID ==
[2019-04-26 10:27] VITALS: BP 110/57
--- NOTE | 2019-04-26 10:28 | NUR ---
Signature Attestation Statement: I MEHDI MARTINEZ performed this procedure EECP on this patient. Addendum: 04/26/19 at 1028 by MEHDI MARTINEZ HDHI2 Amended: Links added.
--- NOTE | 2019-04-26 10:29 | NUR ---
Signature Attestation Statement: I MEHDI MARTINEZ performed this procedure EECP on this patient. Addendum: 04/26/19 at 1029 by MEHDI MARTINEZ HDHI2 Amended: Links added.
[2019-04-26 11:20] VITALS: BP 128/56
--- NOTE | 2019-04-26 11:20 | NUR ---
Signature Attestation Statement: I MEHDI MARTINEZ performed this procedure EECP on this patient. Addendum: 04/26/19 at 1121 by MEHDI MARTINEZ HDHI2 Amended: Links added.
--- NOTE | 2019-04-26 11:20 | NUR ---
Signature Attestation Statement: I MEHDI MARTINEZ performed this procedure EECP on this patient. Addendum: 04/26/19 at 1120 by MEHDI MARTINEZ HDHI2 Amended: Links added.
== END | disposition home or self-care (01) ==
LOC: CHF HDHVI 10:05
PROVIDERS: ATTEND Internal Medicine Cardiovascular Disease
DX: I25.718 Atherosclerosis of autologous vein coronary artery bypass graft(s) with other forms of angina pectoris (principal); I50.33 Acute on chronic diastolic (congestive) heart failure; I25.118 Atherosclerotic heart disease of native coronary artery with other forms of angina pectoris; I28.0 Arteriovenous fistula of pulmonary vessels; I73.9 Peripheral vascular disease, unspecified; E11.9 Type 2 diabetes mellitus without complications; E11.40 Type 2 diabetes mellitus with diabetic neuropathy, unspecified; E11.21 Type 2 diabetes mellitus with diabetic nephropathy; J44.9 Chronic obstructive pulmonary disease, unspecified; M54.16 Radiculopathy, lumbar region; D64.9 Anemia, unspecified; E11.59 Type 2 diabetes mellitus with other circulatory complications; E11.42 Type 2 diabetes mellitus with diabetic polyneuropathy; M25.519 Pain in unspecified shoulder
CPT/HCPCS: G0166

== ENCOUNTER → 2019-04-29 | Outpatient (CLI) | payer MEDICARE, MEDICAID ==
[2019-04-29 10:49] VITALS: BP 119/57
--- NOTE | 2019-04-29 10:49 | NUR ---
Signature Attestation Statement: I MEHDI MARTINEZ performed this procedure EECP on this patient. Addendum: 04/29/19 at 1049 by MEHDI MARTINEZ HDHI2 Amended: Links added.
--- NOTE | 2019-04-29 10:50 | NUR ---
Signature Attestation Statement: I MEHDI MARTINEZ performed this procedure EECP on this patient. Addendum: 04/29/19 at 1050 by MEHDI MARTINEZ HDHI2 Amended: Links added.
[2019-04-29 11:25] VITALS: BP 120/55
--- NOTE | 2019-04-29 11:25 | NUR ---
Signature Attestation Statement: I MEHDI MARTINEZ performed this procedure EECP on this patient. Addendum: 04/29/19 at 1125 by MEHDI MARTINEZ HDHI2 Amended: Links added.
--- NOTE | 2019-04-29 11:36 | NUR ---
Signature Attestation Statement: I MEHDI MARTINEZ performed this procedure EECP on this patient. Addendum: 04/29/19 at 1136 by MEHDI MARTINEZ HDHI2 Amended: Links added.
== END | disposition home or self-care (01) ==
LOC: CHF HDHVI 10:05
PROVIDERS: ATTEND Internal Medicine Cardiovascular Disease
DX: I25.118 Atherosclerotic heart disease of native coronary artery with other forms of angina pectoris (principal); I13.0 Hypertensive heart and chronic kidney disease with heart failure and stage 1 through stage 4 chronic kidney disease, or unspecified chronic kidney disease; E11.22 Type 2 diabetes mellitus with diabetic chronic kidney disease; N18.9 Chronic kidney disease, unspecified; I50.20 Unspecified systolic (congestive) heart failure; E11.42 Type 2 diabetes mellitus with diabetic polyneuropathy; E11.51 Type 2 diabetes mellitus with diabetic peripheral angiopathy without gangrene; E11.59 Type 2 diabetes mellitus with other circulatory complications; J44.9 Chronic obstructive pulmonary disease, unspecified; M54.16 Radiculopathy, lumbar region; D64.9 Anemia, unspecified; M25.519 Pain in unspecified shoulder
CPT/HCPCS: G0166

== ENCOUNTER → 2019-04-30 | Outpatient (CLI) | payer MEDICARE, MEDICAID ==
[2019-04-30 10:52] VITALS: BP 124/57
--- NOTE | 2019-04-30 10:53 | NUR ---
Signature Attestation Statement: I MEHDI MARTINEZ performed this procedure EECP on this patient.
--- NOTE | 2019-04-30 10:58 | NUR ---
Signature Attestation Statement: I MEHDI MARTINEZ performed this procedure EECP on this patient. Addendum: 04/30/19 at 1105 by MEHDI MARTINEZ HDHI2 Amended: Links added.
--- NOTE | 2019-04-30 11:26 | NUR ---
Signature Attestation Statement: I MEHDI MARTINEZ performed this procedure EECP on this patient. Addendum: 04/30/19 at 1127 by EMHDI MARTINEZ HDHI2 Amended: Links added.
[2019-04-30 11:27] VITALS: BP 126/60
--- NOTE | 2019-04-30 11:36 | NUR ---
Signature Attestation Statement: I MEHDI MARTINEZ performed this procedure EECP on this patient. Addendum: 04/30/19 at 1137 by MEHDI MARTINEZ HDHI2 Amended: Links added.
== END | disposition home or self-care (01) ==
LOC: CHF HDHVI 10:22
PROVIDERS: ATTEND Internal Medicine Cardiovascular Disease
DX: I25.118 Atherosclerotic heart disease of native coronary artery with other forms of angina pectoris (principal); I13.0 Hypertensive heart and chronic kidney disease with heart failure and stage 1 through stage 4 chronic kidney disease, or unspecified chronic kidney disease; N18.9 Chronic kidney disease, unspecified; I50.23 Acute on chronic systolic (congestive) heart failure
CPT/HCPCS: G0166

== ENCOUNTER → 2019-05-01 | Outpatient (CLI) | payer MEDICARE, MEDICAID ==
[2019-05-01 10:42] VITALS: BP 130/57
--- NOTE | 2019-05-01 10:43 | NUR ---
Signature Attestation Statement: I MEHDI MARTINEZ performed this procedure EECP on this patient. Addendum: 05/01/19 at 1043 by MEHDI MARTINEZ HDHI2 Amended: Links added.
--- NOTE | 2019-05-01 10:43 | NUR ---
Signature Attestation Statement: I MEHDI MARTINEZ performed this procedure EECP on this patient. Addendum: 05/01/19 at 1044 by MEHDI MARTINEZ HDHI2 Amended: Links added.
[2019-05-01 11:21] VITALS: BP 142/74
--- NOTE | 2019-05-01 11:21 | NUR ---
Signature Attestation Statement: I MEHDI MARTINEZ performed this procedure EECP on this patient. Addendum: 05/01/19 at 1121 by MEHDI MARTINEZ HDHI2 Amended: Links added.
--- NOTE | 2019-05-01 11:29 | NUR ---
Signature Attestation Statement: I MEHDI MARTINEZ performed this procedure EECP on this patient. Addendum: 05/01/19 at 1129 by MEHDI MARTINEZ HDHI2 Amended: Links added.
== END | disposition home or self-care (01) ==
LOC: CHF HDHVI 10:10
PROVIDERS: ATTEND Internal Medicine Cardiovascular Disease
DX: I25.118 Atherosclerotic heart disease of native coronary artery with other forms of angina pectoris (principal); I13.0 Hypertensive heart and chronic kidney disease with heart failure and stage 1 through stage 4 chronic kidney disease, or unspecified chronic kidney disease; E11.22 Type 2 diabetes mellitus with diabetic chronic kidney disease; N18.9 Chronic kidney disease, unspecified; I50.23 Acute on chronic systolic (congestive) heart failure; E11.59 Type 2 diabetes mellitus with other circulatory complications; E11.51 Type 2 diabetes mellitus with diabetic peripheral angiopathy without gangrene; E11.42 Type 2 diabetes mellitus with diabetic polyneuropathy; J44.9 Chronic obstructive pulmonary disease, unspecified; M54.16 Radiculopathy, lumbar region; D64.9 Anemia, unspecified; M25.519 Pain in unspecified shoulder; R06.02 Shortness of breath
CPT/HCPCS: G0166

== ENCOUNTER → 2019-05-02 | Outpatient (CLI) | payer MEDICARE, MEDICAID ==
[2019-05-02 10:36] VITALS: BP 111/47
--- NOTE | 2019-05-02 10:36 | NUR ---
Signature Attestation Statement: I MEHDI MARTINEZ performed this procedure EECP on this patient. Addendum: 05/02/19 at 1037 by MEHDI MARTINEZ HDHI2 Amended: Links added.
[2019-05-02 11:20] VITALS: BP 124/62
--- NOTE | 2019-05-02 11:20 | NUR ---
Signature Attestation Statement: I MEHDI MARTINEZ performed this procedure EECP on this patient. Addendum: 05/02/19 at 1120 by MEHDI MARTINEZ HDHI2 Amended: Links added.
--- NOTE | 2019-05-02 11:29 | NUR ---
Signature Attestation Statement: I MEHDI MARTINEZ performed this procedure EECP on this patient. Addendum: 05/02/19 at 1129 by MEHDI MARTINEZ HDHI2 Amended: Links added.
== END | disposition home or self-care (01) ==
LOC: CHF HDHVI 10:12
PROVIDERS: ATTEND Internal Medicine Cardiovascular Disease
DX: I25.118 Atherosclerotic heart disease of native coronary artery with other forms of angina pectoris (principal); I11.0 Hypertensive heart disease with heart failure; I50.23 Acute on chronic systolic (congestive) heart failure; E11.51 Type 2 diabetes mellitus with diabetic peripheral angiopathy without gangrene; E11.59 Type 2 diabetes mellitus with other circulatory complications; E11.42 Type 2 diabetes mellitus with diabetic polyneuropathy; E11.21 Type 2 diabetes mellitus with diabetic nephropathy; J44.9 Chronic obstructive pulmonary disease, unspecified; M54.16 Radiculopathy, lumbar region; D64.9 Anemia, unspecified; M25.519 Pain in unspecified shoulder; R42 Dizziness and giddiness
CPT/HCPCS: G0166

== ENCOUNTER → 2019-05-03 | Outpatient (CLI) | payer MEDICARE, MEDICAID ==
[2019-05-03 10:46] VITALS: BP 129/61
--- NOTE | 2019-05-03 10:46 | NUR ---
Signature Attestation Statement: I MEHDI MARTINEZ performed this procedure EECP on this patient. Addendum: 05/03/19 at 1047 by MEHDI MARTINEZ HDHI2 Amended: Links added.
[2019-05-03 11:29] VITALS: BP 130/55
--- NOTE | 2019-05-03 11:29 | NUR ---
Signature Attestation Statement: I MEHDI MARTINEZ performed this procedure EECP on this patient. Addendum: 05/03/19 at 1130 by MEHDI MARTINEZ HDHI2 Amended: Links added.
--- NOTE | 2019-05-03 11:35 | NUR ---
Signature Attestation Statement: I MEHDI MARTINEZ performed this procedure EECP on this patient. Addendum: 05/03/19 at 1135 by MEHDI MARTINEZ HDHI2 Amended: Links added.
== END | disposition home or self-care (01) ==
LOC: Rad HDHVI 10:11
PROVIDERS: ATTEND Internal Medicine Cardiovascular Disease
DX: I25.118 Atherosclerotic heart disease of native coronary artery with other forms of angina pectoris (principal); I13.0 Hypertensive heart and chronic kidney disease with heart failure and stage 1 through stage 4 chronic kidney disease, or unspecified chronic kidney disease; E11.22 Type 2 diabetes mellitus with diabetic chronic kidney disease; N18.9 Chronic kidney disease, unspecified; I50.23 Acute on chronic systolic (congestive) heart failure; E11.51 Type 2 diabetes mellitus with diabetic peripheral angiopathy without gangrene; E11.59 Type 2 diabetes mellitus with other circulatory complications; E11.42 Type 2 diabetes mellitus with diabetic polyneuropathy; J44.9 Chronic obstructive pulmonary disease, unspecified; M54.16 Radiculopathy, lumbar region; D64.9 Anemia, unspecified; M25.519 Pain in unspecified shoulder; R06.02 Shortness of breath; R42 Dizziness and giddiness
CPT/HCPCS: G0166

== ENCOUNTER → 2019-05-06 | Outpatient (CLI) | payer MEDICARE, MEDICAID ==
[2019-05-06 12:40] VITALS: BP 117/48
--- NOTE | 2019-05-06 12:41 | NUR ---
Signature Attestation Statement: Cori DICKSON performed this procedure EECP on this patient. Addendum: 05/06/19 at 1257 by NEVAEH DICKSON HDHI2 Amended: Links added.
[2019-05-06 12:42] VITALS: BP 128/57
== END | disposition home or self-care (01) ==
LOC: CHF HDHVI 10:08
PROVIDERS: ATTEND Internal Medicine Cardiovascular Disease
DX: I25.118 Atherosclerotic heart disease of native coronary artery with other forms of angina pectoris (principal); E11.22 Type 2 diabetes mellitus with diabetic chronic kidney disease; I13.0 Hypertensive heart and chronic kidney disease with heart failure and stage 1 through stage 4 chronic kidney disease, or unspecified chronic kidney disease; I50.23 Acute on chronic systolic (congestive) heart failure; E11.51 Type 2 diabetes mellitus with diabetic peripheral angiopathy without gangrene; E11.59 Type 2 diabetes mellitus with other circulatory complications; E11.42 Type 2 diabetes mellitus with diabetic polyneuropathy; J44.9 Chronic obstructive pulmonary disease, unspecified; D64.9 Anemia, unspecified; M25.519 Pain in unspecified shoulder; R06.02 Shortness of breath; R42 Dizziness and giddiness
CPT/HCPCS: G0166

== ENCOUNTER → 2019-05-08 | Outpatient (CLI) | payer MEDICARE, MEDICAID ==
[2019-05-08 10:46] VITALS: BP 123/59
--- NOTE | 2019-05-08 10:46 | NUR ---
Signature Attestation Statement: I MEHDI MARTINEZ performed this procedure EECP on this patient. Addendum: 05/08/19 at 1047 by MEHDI MARTINEZ HDHI2 Amended: Links added.
--- NOTE | 2019-05-08 10:51 | NUR ---
Signature Attestation Statement: I MEHDI MARTINEZ performed this procedure EECP on this patient. Addendum: 05/08/19 at 1052 by MEHDI MARTINEZ HDHI2 Amended: Links added.
[2019-05-08 11:42] VITALS: BP 126/46
--- NOTE | 2019-05-08 11:42 | NUR ---
Signature Attestation Statement: I MEHDI MARTINEZ performed this procedure EECP on this patient. Addendum: 05/08/19 at 1142 by MEHDI MARTINEZ HDHI2 Amended: Links added.
--- NOTE | 2019-05-08 11:43 | NUR ---
Signature Attestation Statement: I MEHDI MARTINEZ performed this procedure EECP on this patient. Addendum: 05/08/19 at 1144 by MEHDI MARTINEZ HDHI2 Amended: Links added.
== END | disposition home or self-care (01) ==
LOC: CHF HDHVI 10:12
PROVIDERS: ATTEND Internal Medicine Cardiovascular Disease
DX: I25.118 Atherosclerotic heart disease of native coronary artery with other forms of angina pectoris (principal); E11.51 Type 2 diabetes mellitus with diabetic peripheral angiopathy without gangrene; E11.42 Type 2 diabetes mellitus with diabetic polyneuropathy; E11.22 Type 2 diabetes mellitus with diabetic chronic kidney disease; I13.0 Hypertensive heart and chronic kidney disease with heart failure and stage 1 through stage 4 chronic kidney disease, or unspecified chronic kidney disease; N18.9 Chronic kidney disease, unspecified; I50.23 Acute on chronic systolic (congestive) heart failure; J44.9 Chronic obstructive pulmonary disease, unspecified; M54.16 Radiculopathy, lumbar region; D64.9 Anemia, unspecified; M25.519 Pain in unspecified shoulder; R06.02 Shortness of breath; R42 Dizziness and giddiness
CPT/HCPCS: G0166

== ENCOUNTER → 2019-05-09 | Outpatient (CLI) | payer MEDICARE, MEDICAID ==
[2019-05-09 10:36] VITALS: BP 118/40
--- NOTE | 2019-05-09 10:37 | NUR ---
Signature Attestation Statement: I MEHDI MARTINEZ performed this procedure EECP on this patient. Addendum: 05/09/19 at 1037 by MEHDI MARTINEZ HDHI2 Amended: Links added.
--- NOTE | 2019-05-09 10:37 | NUR ---
Signature Attestation Statement: I MEHDI MARTINEZ performed this procedure EECP on this patient. Addendum: 05/09/19 at 1041 by MEHDI MARTINEZ HDHI2 Amended: Links added.
--- NOTE | 2019-05-09 11:25 | NUR ---
Signature Attestation Statement: I MEHDI MARTINEZ performed this procedure EECP on this patient. Addendum: 05/09/19 at 1126 by MEHDI MARTINEZ HDHI2 Amended: Links added.
[2019-05-09 11:26] VITALS: BP 136/64
--- NOTE | 2019-05-09 11:35 | NUR ---
Signature Attestation Statement: I MEHDI MARTINEZ performed this procedure EECP on this patient. Addendum: 05/09/19 at 1136 by MEHDI MARTINEZ HDHI2 Amended: Links added.
== END | disposition home or self-care (01) ==
LOC: CHF HDHVI 10:12
PROVIDERS: ATTEND Internal Medicine Cardiovascular Disease
DX: I25.118 Atherosclerotic heart disease of native coronary artery with other forms of angina pectoris (principal); I13.0 Hypertensive heart and chronic kidney disease with heart failure and stage 1 through stage 4 chronic kidney disease, or unspecified chronic kidney disease; N18.9 Chronic kidney disease, unspecified; I50.23 Acute on chronic systolic (congestive) heart failure; J44.9 Chronic obstructive pulmonary disease, unspecified; M54.16 Radiculopathy, lumbar region; D64.9 Anemia, unspecified; E11.51 Type 2 diabetes mellitus with diabetic peripheral angiopathy without gangrene; E11.42 Type 2 diabetes mellitus with diabetic polyneuropathy; M25.519 Pain in unspecified shoulder; R06.02 Shortness of breath; R42 Dizziness and giddiness
CPT/HCPCS: G0166

== ENCOUNTER → 2019-05-10 | Outpatient (CLI) | payer MEDICARE, MEDICAID ==
[2019-05-10 10:56] VITALS: BP 120/56
--- NOTE | 2019-05-10 10:56 | NUR ---
Signature Attestation Statement: I MEHDI MARTINEZ performed this procedure EECP on this patient. Addendum: 05/10/19 at 1057 by MEHDI MARTINEZ HDHI2 Amended: Links added.
--- NOTE | 2019-05-10 10:58 | NUR ---
Signature Attestation Statement: I MEHDI MARTINEZ performed this procedure EECP on this patient. Addendum: 05/10/19 at 1059 by MEHDI MARTINEZ HDHI2 Amended: Links added.
--- NOTE | 2019-05-10 11:35 | NUR ---
Signature Attestation Statement: I MEHDI MARTINEZ performed this procedure EECP on this patient. Addendum: 05/10/19 at 1136 by MEHDI MARTINEZ HDHI2 Amended: Links added.
[2019-05-10 11:36] VITALS: BP 118/59
--- NOTE | 2019-05-10 11:42 | NUR ---
Signature Attestation Statement: I MEHDI MARTINEZ performed this procedure EECP on this patient. Addendum: 05/10/19 at 1143 by MEHDI MARTINEZ HDHI2 Amended: Links added.
== END | disposition home or self-care (01) ==
LOC: CHF HDHVI 10:19
PROVIDERS: ATTEND Internal Medicine Cardiovascular Disease
DX: I25.118 Atherosclerotic heart disease of native coronary artery with other forms of angina pectoris (principal); I50.23 Acute on chronic systolic (congestive) heart failure; R06.02 Shortness of breath; J44.9 Chronic obstructive pulmonary disease, unspecified; M54.16 Radiculopathy, lumbar region; D64.9 Anemia, unspecified; E11.51 Type 2 diabetes mellitus with diabetic peripheral angiopathy without gangrene; E11.42 Type 2 diabetes mellitus with diabetic polyneuropathy; M25.519 Pain in unspecified shoulder; R42 Dizziness and giddiness
CPT/HCPCS: G0166

== ENCOUNTER → 2019-05-13 | Outpatient (CLI) | payer MEDICARE, MEDICAID ==
[2019-05-13 10:39] VITALS: BP 121/58
--- NOTE | 2019-05-13 10:39 | NUR ---
Signature Attestation Statement: I MEHDI MARTINEZ performed this procedure EECP on this patient. Addendum: 05/13/19 at 1040 by MEHDI MARTINEZ HDHI2 Amended: Links added.
--- NOTE | 2019-05-13 10:40 | NUR ---
Signature Attestation Statement: I MEHDI MARTINEZ performed this procedure EECP on this patient. Addendum: 05/13/19 at 1041 by MEHDI MARTINEZ HDHI2 Amended: Links added.
[2019-05-13 11:19] VITALS: BP 145/74
--- NOTE | 2019-05-13 11:19 | NUR ---
Signature Attestation Statement: I MEHDI MARTINEZ performed this procedure EECP on this patient. Addendum: 05/13/19 at 1119 by MEHDI MARTINEZ HDHI2 Amended: Links added.
--- NOTE | 2019-05-13 11:29 | NUR ---
Signature Attestation Statement: I MEHDI MARTINEZ performed this procedure EECP on this patient. Addendum: 05/13/19 at 1129 by MEHDI MARTINEZ HDHI2 Amended: Links added.
== END | disposition home or self-care (01) ==
LOC: CHF HDHVI 10:17
PROVIDERS: ATTEND Internal Medicine Cardiovascular Disease
DX: I25.118 Atherosclerotic heart disease of native coronary artery with other forms of angina pectoris (principal); I50.23 Acute on chronic systolic (congestive) heart failure; J44.9 Chronic obstructive pulmonary disease, unspecified; M54.16 Radiculopathy, lumbar region; D64.9 Anemia, unspecified; E11.51 Type 2 diabetes mellitus with diabetic peripheral angiopathy without gangrene; E11.42 Type 2 diabetes mellitus with diabetic polyneuropathy; M25.519 Pain in unspecified shoulder; R42 Dizziness and giddiness; R06.02 Shortness of breath
CPT/HCPCS: G0166

== ENCOUNTER → 2019-05-14 | Outpatient (CLI) | payer MEDICARE, MEDICAID ==
[2019-05-14 10:32] VITALS: BP 116/52
--- NOTE | 2019-05-14 10:32 | NUR ---
Signature Attestation Statement: I MEHDI MARTINEZ performed this procedure EECP on this patient. Addendum: 05/14/19 at 1032 by MEHDI MARTINEZ HDHI2 Amended: Links added.
--- NOTE | 2019-05-14 10:33 | NUR ---
Signature Attestation Statement: I MEHDI MARTINEZ performed this procedure EECP on this patient. Addendum: 05/14/19 at 1033 by MEHDI MARTINEZ HDHI2 Amended: Links added.
[2019-05-14 11:28] VITALS: BP 121/56
--- NOTE | 2019-05-14 11:28 | NUR ---
Signature Attestation Statement: I MEHDI MARTINEZ performed this procedure EECP on this patient. Addendum: 05/14/19 at 1128 by MEHDI MARTINEZ HDHI2 Amended: Links added.
--- NOTE | 2019-05-14 11:40 | NUR ---
Signature Attestation Statement: I MEHDI MARTINEZ performed this procedure EECP on this patient. Addendum: 05/14/19 at 1143 by MEHDI MARTINEZ HDHI2 Amended: Links added.
== END | disposition home or self-care (01) ==
LOC: CHF HDHVI 10:08
PROVIDERS: ATTEND Internal Medicine Cardiovascular Disease
DX: I25.118 Atherosclerotic heart disease of native coronary artery with other forms of angina pectoris (principal); I50.23 Acute on chronic systolic (congestive) heart failure; R06.02 Shortness of breath; J44.9 Chronic obstructive pulmonary disease, unspecified; M54.16 Radiculopathy, lumbar region; D64.9 Anemia, unspecified; E11.51 Type 2 diabetes mellitus with diabetic peripheral angiopathy without gangrene; E11.42 Type 2 diabetes mellitus with diabetic polyneuropathy; M25.519 Pain in unspecified shoulder; R42 Dizziness and giddiness
CPT/HCPCS: G0166

== ENCOUNTER → 2019-05-17 | Outpatient (CLI) | payer MEDICARE, MEDICAID ==
[2019-05-17 10:51] VITALS: BP 118/53
--- NOTE | 2019-05-17 10:52 | NUR ---
Signature Attestation Statement: I MEHDI MARTINEZ performed this procedure EECP on this patient. Addendum: 05/17/19 at 1052 by MEHDI MARTINEZ HDHI2 Amended: Links added.
--- NOTE | 2019-05-17 10:53 | NUR ---
Signature Attestation Statement: I MEHDI MARTINEZ performed this procedure EECP on this patient. Addendum: 05/17/19 at 1053 by MEHDI MARTINEZ HDHI2 Amended: Links added.
[2019-05-17 11:30] VITALS: BP 134/63
--- NOTE | 2019-05-17 11:30 | NUR ---
Signature Attestation Statement: I MEHDI MARTINEZ performed this procedure EECP on this patient. Addendum: 05/17/19 at 1131 by MEHDI MARTINEZ HDHI2 Amended: Links added.
--- NOTE | 2019-05-17 11:43 | NUR ---
Signature Attestation Statement: I MEHDI MARTINEZ performed this procedure EECP on this patient. Addendum: 05/17/19 at 1143 by MEHDI MARTINEZ HDHI2 Amended: Links added.
== END | disposition home or self-care (01) ==
LOC: CHF HDHVI 10:20
PROVIDERS: ATTEND Internal Medicine Cardiovascular Disease
DX: I25.118 Atherosclerotic heart disease of native coronary artery with other forms of angina pectoris (principal); I13.0 Hypertensive heart and chronic kidney disease with heart failure and stage 1 through stage 4 chronic kidney disease, or unspecified chronic kidney disease; E11.22 Type 2 diabetes mellitus with diabetic chronic kidney disease; N18.9 Chronic kidney disease, unspecified; I50.23 Acute on chronic systolic (congestive) heart failure; E11.51 Type 2 diabetes mellitus with diabetic peripheral angiopathy without gangrene; E11.42 Type 2 diabetes mellitus with diabetic polyneuropathy; J44.9 Chronic obstructive pulmonary disease, unspecified; M54.16 Radiculopathy, lumbar region; M25.519 Pain in unspecified shoulder; D64.9 Anemia, unspecified; R06.02 Shortness of breath; R42 Dizziness and giddiness
CPT/HCPCS: G0166

== ENCOUNTER → 2019-05-23 | Outpatient (CLI) | payer MEDICARE, MEDICAID ==
[2019-05-23 11:22] VITALS: BP 137/56
--- NOTE | 2019-05-23 11:24 | NUR ---
Signature Attestation Statement: I MEHDI MARTINEZ performed this procedure EECP on this patient. Addendum: 05/23/19 at 1126 by MEHDI MARTINEZ HDHI2 Amended: Links added.
--- NOTE | 2019-05-23 11:26 | NUR ---
Signature Attestation Statement: I MEHDI MARTINEZ performed this procedure EECP on this patient. Addendum: 05/23/19 at 1127 by MEHDI MARTINEZ HDHI2 Amended: Links added.
[2019-05-23 11:46] VITALS: BP 141/71
--- NOTE | 2019-05-23 11:46 | NUR ---
Signature Attestation Statement: I MEHDI MARTINEZ performed this procedure EECP on this patient. Addendum: 05/23/19 at 1146 by MEHDI MARTINEZ HDHI2 Amended: Links added.
--- NOTE | 2019-05-23 11:50 | NUR ---
Signature Attestation Statement: I MEHDI MARTINEZ performed this procedure EECP on this patient. Addendum: 05/23/19 at 1151 by MEHDI MARTINEZ HDHI2 Amended: Links added.
[2019-05-23 15:54] LABS: Urine Blood Negative /uL (Negative); Urine Specific Gravity 1.009 (1.001-1.035)
== END | disposition home or self-care (01) ==
LOC: CHF HDHVI 10:06
PROVIDERS: ATTEND Internal Medicine Cardiovascular Disease
DX: N39.0 Urinary tract infection, site not specified (principal); I25.118 Atherosclerotic heart disease of native coronary artery with other forms of angina pectoris; I50.23 Acute on chronic systolic (congestive) heart failure; R06.02 Shortness of breath; E11.9 Type 2 diabetes mellitus without complications; J44.9 Chronic obstructive pulmonary disease, unspecified; M54.16 Radiculopathy, lumbar region; D64.9 Anemia, unspecified; E11.51 Type 2 diabetes mellitus with diabetic peripheral angiopathy without gangrene; E11.42 Type 2 diabetes mellitus with diabetic polyneuropathy; M25.519 Pain in unspecified shoulder; R42 Dizziness and giddiness
CPT/HCPCS: 81003; 87086; G0166

== ENCOUNTER → 2019-06-03 | Outpatient (CLI) | payer MEDICARE, MEDICAID ==
[2019-06-03 11:03] VITALS: BP 132/58
--- NOTE | 2019-06-03 11:03 | NUR ---
Signature Attestation Statement: I MEHDI MARTINEZ performed this procedure EECP on this patient. Addendum: 06/03/19 at 1104 by MEHDI MARTINEZ HDHI2 Amended: Links added.
--- NOTE | 2019-06-03 11:39 | NUR ---
Signature Attestation Statement: I MEHDI MARTINEZ performed this procedure EECP on this patient. Addendum: 06/03/19 at 1140 by MEHDI MARTINEZ HDHI2 Amended: Links added.
[2019-06-03 11:40] VITALS: BP 135/62
--- NOTE | 2019-06-03 11:40 | NUR ---
Signature Attestation Statement: I MEHDI MARTINEZ performed this procedure EECP on this patient. Addendum: 06/03/19 at 1141 by MEHDI MARTINEZ HDHI2 Amended: Links added.
== END | disposition home or self-care (01) ==
LOC: CHF HDHVI 10:24
PROVIDERS: ATTEND Internal Medicine Cardiovascular Disease
DX: I25.118 Atherosclerotic heart disease of native coronary artery with other forms of angina pectoris (principal); I50.23 Acute on chronic systolic (congestive) heart failure; E11.51 Type 2 diabetes mellitus with diabetic peripheral angiopathy without gangrene; E11.42 Type 2 diabetes mellitus with diabetic polyneuropathy; J44.9 Chronic obstructive pulmonary disease, unspecified; M54.16 Radiculopathy, lumbar region; D64.9 Anemia, unspecified; M25.519 Pain in unspecified shoulder; R06.02 Shortness of breath
CPT/HCPCS: G0166

== ENCOUNTER → 2019-06-04 | Outpatient (CLI) | payer MEDICARE, MEDICAID ==
[2019-06-04 10:43] VITALS: BP 128/56
--- NOTE | 2019-06-04 10:43 | NUR ---
Signature Attestation Statement: I MEHDI MARTINEZ performed this procedure EECP on this patient. Addendum: 06/04/19 at 1044 by MEHDI MARTINEZ HDHI2 Amended: Links added.
[2019-06-04 11:26] VITALS: BP 125/61
--- NOTE | 2019-06-04 11:26 | NUR ---
Signature Attestation Statement: I MEHDI MARTINEZ performed this procedure EECP on this patient. Addendum: 06/04/19 at 1126 by MEHDI MARTINEZ HDHI2 Amended: Links added.
--- NOTE | 2019-06-04 11:37 | NUR ---
Signature Attestation Statement: I MEHDI MARTINEZ performed this procedure EECP on this patient. Addendum: 06/04/19 at 1137 by MEHDI MARTINEZ HDHI2 Amended: Links added.
== END | disposition home or self-care (01) ==
LOC: CHF HDHVI 10:16
PROVIDERS: ATTEND Internal Medicine Cardiovascular Disease
DX: I25.118 Atherosclerotic heart disease of native coronary artery with other forms of angina pectoris (principal); E11.51 Type 2 diabetes mellitus with diabetic peripheral angiopathy without gangrene; E11.42 Type 2 diabetes mellitus with diabetic polyneuropathy; I50.23 Acute on chronic systolic (congestive) heart failure; J44.9 Chronic obstructive pulmonary disease, unspecified; M54.16 Radiculopathy, lumbar region; D64.9 Anemia, unspecified; M25.519 Pain in unspecified shoulder; R06.02 Shortness of breath; R42 Dizziness and giddiness
CPT/HCPCS: G0166

== ENCOUNTER → 2019-06-07 | Outpatient (CLI) | payer MEDICARE, MEDICAID ==
[2019-06-07 10:47] VITALS: BP 133/65
--- NOTE | 2019-06-07 10:48 | NUR ---
Signature Attestation Statement: I MEHDI MARTINEZ performed this procedure EECP on this patient. Addendum: 06/07/19 at 1048 by MEHDI MARTINEZ HDHI2 Amended: Links added.
--- NOTE | 2019-06-07 10:48 | NUR ---
Signature Attestation Statement: I MEHDI MARTINEZ performed this procedure EECP on this patient. Addendum: 06/07/19 at 1049 by MEHDI MARTINEZ HDHI2 Amended: Links added.
[2019-06-07 11:31] VITALS: BP 126/66
--- NOTE | 2019-06-07 11:31 | NUR ---
Signature Attestation Statement: I MEHDI MARTINEZ performed this procedure EECP on this patient. Addendum: 06/07/19 at 1131 by MEHDI MARTINEZ [email or web address] Amended: Links added.
--- NOTE | 2019-06-07 11:43 | NUR ---
Signature Attestation Statement: I MEHDI MARTINEZ performed this procedure EECP on this patient. Addendum: 06/07/19 at 1144 by MEHDI MARTINEZ [email or web address] Amended: Links added.
== END | disposition home or self-care (01) ==
LOC: CHF HDHVI 10:12
PROVIDERS: ATTEND Internal Medicine Cardiovascular Disease
DX: I25.118 Atherosclerotic heart disease of native coronary artery with other forms of angina pectoris (principal); I50.23 Acute on chronic systolic (congestive) heart failure; J44.9 Chronic obstructive pulmonary disease, unspecified; M54.16 Radiculopathy, lumbar region; D64.9 Anemia, unspecified; E11.52 Type 2 diabetes mellitus with diabetic peripheral angiopathy with gangrene; E11.42 Type 2 diabetes mellitus with diabetic polyneuropathy; M25.519 Pain in unspecified shoulder; R06.02 Shortness of breath; R42 Dizziness and giddiness
CPT/HCPCS: G0166

== ENCOUNTER → 2019-06-10 | Outpatient (CLI) | payer MEDICARE, MEDICAID ==
[2019-06-10 12:05] VITALS: BP 123/45
--- NOTE | 2019-06-10 12:06 | NUR ---
Signature Attestation Statement: I MEHDI MARTINEZ performed this procedure EECP on this patient. Addendum: 06/10/19 at 1207 by MEHDI MARTINEZ [email or web address] Amended: Links added.
[2019-06-10 12:07] VITALS: BP 134/70
--- NOTE | 2019-06-10 12:19 | NUR ---
Signature Attestation Statement: I MEHDI MARTINEZ performed this procedure EECP on this patient. Addendum: 06/10/19 at 1219 by MEHDI MARTINEZ [email or web address] Amended: Links added.
--- NOTE | 2019-06-10 12:19 | NUR ---
Signature Attestation Statement: I MEHDI MARTINEZ performed this procedure EECP on this patient. Addendum: 06/10/19 at 1220 by MEHDI MARTINEZ HDHI2 Amended: Links added.
--- NOTE | 2019-06-10 12:24 | NUR ---
Signature Attestation Statement: I MEHDI MARTINEZ performed this procedure EECP on this patient. Addendum: 06/10/19 at 1225 by MEHDI MARTINEZ HDHI2 Amended: Links added.
== END | disposition home or self-care (01) ==
LOC: CHF HDHVI 10:38
PROVIDERS: ATTEND Internal Medicine Cardiovascular Disease
DX: I25.118 Atherosclerotic heart disease of native coronary artery with other forms of angina pectoris (principal); I50.23 Acute on chronic systolic (congestive) heart failure; J44.9 Chronic obstructive pulmonary disease, unspecified; M54.16 Radiculopathy, lumbar region; D64.9 Anemia, unspecified; E11.51 Type 2 diabetes mellitus with diabetic peripheral angiopathy without gangrene; E11.42 Type 2 diabetes mellitus with diabetic polyneuropathy; M25.519 Pain in unspecified shoulder; R06.02 Shortness of breath; R42 Dizziness and giddiness
CPT/HCPCS: G0166

== ENCOUNTER → 2019-06-17 | Outpatient (CLI) | payer MEDICARE, MEDICAID ==
[2019-06-17 12:27] VITALS: BP 121/51
--- NOTE | 2019-06-17 12:27 | NUR ---
Signature Attestation Statement: I MEHDI MARTINEZ performed this procedure EECP on this patient. Addendum: 06/17/19 at 1228 by MEHDI MARTINEZ HDHI2 Amended: Links added.
[2019-06-17 12:28] VITALS: BP 135/63
--- NOTE | 2019-06-17 12:28 | NUR ---
Signature Attestation Statement: I MEHDI MARTINEZ performed this procedure EECP on this patient. Addendum: 06/17/19 at 1229 by MEHDI MARTINEZ HDHI2 Amended: Links added.
--- NOTE | 2019-06-17 12:32 | NUR ---
Signature Attestation Statement: I MEHDI MARTINEZ performed this procedure EECP on this patient. Addendum: 06/17/19 at 1232 by MEHDI MARTINEZ [email or web address] Amended: Links added.
== END | disposition home or self-care (01) ==
LOC: CHF HDHVI 10:10
PROVIDERS: ATTEND Internal Medicine Cardiovascular Disease
DX: I25.118 Atherosclerotic heart disease of native coronary artery with other forms of angina pectoris (principal); E11.59 Type 2 diabetes mellitus with other circulatory complications; E11.42 Type 2 diabetes mellitus with diabetic polyneuropathy; I50.23 Acute on chronic systolic (congestive) heart failure; J44.9 Chronic obstructive pulmonary disease, unspecified; M54.16 Radiculopathy, lumbar region; D64.9 Anemia, unspecified; I73.9 Peripheral vascular disease, unspecified; M25.519 Pain in unspecified shoulder; R06.02 Shortness of breath
CPT/HCPCS: G0166

== ENCOUNTER → 2019-06-19 | Outpatient (CLI) | payer MEDICARE, MEDICAID ==
[2019-06-19 11:21] VITALS: BP 126/54
[2019-06-19 11:22] VITALS: BP 131/67
== END | disposition home or self-care (01) ==
LOC: CHF HDHVI 10:04
PROVIDERS: ATTEND Internal Medicine Cardiovascular Disease
DX: I25.118 Atherosclerotic heart disease of native coronary artery with other forms of angina pectoris (principal); I50.23 Acute on chronic systolic (congestive) heart failure; E11.9 Type 2 diabetes mellitus without complications
CPT/HCPCS: G0166

== ENCOUNTER → 2019-08-12 | Outpatient (CLI) | payer MEDICARE, MEDICAID | END | disposition home or self-care (01) | LOC: Rad HDHVI 15:58 | PROVIDERS: ATTEND Internal Medicine Cardiovascular Disease | DX: R16.0 Hepatomegaly, not elsewhere classified (principal); I70.90 Unspecified atherosclerosis | CPT/HCPCS: 74176 ==

== ENCOUNTER → 2019-10-09 | Outpatient (CLI) | payer MEDICARE, MEDICAID ==
[2019-10-09 11:59] LABS: Urine Blood Negative /uL (Negative); Urine Specific Gravity 1.003 (1.001-1.035)
[2019-10-09 12:02] LABS: Basophils # (auto) 0 10 ^3/uL (0-0.2); Basophils % (auto) 0.5 % (0.0-2.0); Eosinophils # (auto) 0.1 10 ^3/uL (0-0.8); Eosinophils % (auto) 1.8 % (0.0-7.0); Hematocrit 39.4 % (36.0-46.0); Lymphocytes # (auto) 1.8 10 ^3/uL (0.4-5.4); Lymphocytes % (auto) 33.8 % (10.0-50.0); Mean Corpuscular Hemoglobin 29.7 pg (28.0-32.0); Mean Corpuscular Hgb Conc. 33.1 g/dL (32.0-36.0); Mean Corpuscular Volume 89.8 fL (80.0-100.0); Monocytes # (auto) 0.4 10 ^3/uL (0-1.3); Monocytes % (auto) 7.4 % (0.0-12.0); Neutrophils % (auto) 56.5 % (37.0-80.0); Nucleated Red Blood Cells % 0.1 %; Platelet Count (auto) 189 10^3/uL (140-450); Red Blood Cells 4.38 10^6/uL (4.0-5.20); Red Cell Distribution Width 14.4 % (11.8-14.3); White Blood Cell 5.4 10^3/uL (4.4-10.8)
[2019-10-09 12:19] LABS: Potassium 3.9 mmol/L (3.5-5.1)
[2019-10-09 12:26] LABS: Free T4 (Free Thyroxine) 1.09 ng/dL (0.89-1.76)
[2019-10-09 12:28] LABS: Albumin 3.8 g/dL (3.4-5.0); BUN/Creatinine Ratio 16.2; Bilirubin, Total 0.8 mg/dL (0.2-1.0); Calcium 8.8 mg/dL (8.5-10.1); Total Protein 7.9 g/dL (6.4-8.2)
== END | disposition home or self-care (01) ==
LOC: Rad HDHVI 09:13
PROVIDERS: ATTEND Internal Medicine Cardiovascular Disease
DX: I08.1 Rheumatic disorders of both mitral and tricuspid valves (principal); I27.20 Pulmonary hypertension, unspecified; M19.071 Primary osteoarthritis, right ankle and foot; I67.2 Cerebral atherosclerosis; E03.9 Hypothyroidism, unspecified; K90.9 Intestinal malabsorption, unspecified; I10 Essential (primary) hypertension; N39.0 Urinary tract infection, site not specified; D51.9 Vitamin B12 deficiency anemia, unspecified; I25.10 Atherosclerotic heart disease of native coronary artery without angina pectoris; R07.89 Other chest pain; R51 Headache; H05.20 Unspecified exophthalmos; Z00.00 Encounter for general adult medical examination without abnormal findings; Z79.899 Other long term (current) drug therapy
CPT/HCPCS: 36415; 70450; 80053; 80061; 81003; 82306; 82607; 83036; 84439; 84443; 85025; 93306

== ENCOUNTER 2020-05-09 00:51 | Inpatient (IN) | payer MEDICARE, MEDICAID ==
[~2020-05-09] VITALS: Ht 154.9 cm; Wt 83.5 kg
[~2020-05-09 00:51] MED LIST changes: -ASPI-404 PO; +ASPI-543 PO; -LORA2TAB10 PO; +LORA2TAB12 PO
[2020-05-09 04:20] LABS: Basophils # (auto) 0 10 ^3/uL (0-0.2); Basophils % (auto) 0.5 % (0.0-2.0); Eosinophils # (auto) 0.1 10 ^3/uL (0-0.8); Eosinophils % (auto) 1.4 % (0.0-7.0); Hematocrit 39.4 % (36.0-46.0); Hemoglobin 13.1 g/dL (12.2-16.2); Lymphocytes # (auto) 2.2 10 ^3/uL (0.4-5.4); Lymphocytes % (auto) 32.9 % (10.0-50.0); Mean Corpuscular Hemoglobin 29.4 pg (28.0-32.0); Mean Corpuscular Hgb Conc. 33.4 g/dL (32.0-36.0); Mean Corpuscular Volume 88.2 fL (80.0-100.0); Monocytes # (auto) 0.5 10 ^3/uL (0-1.3); Neutrophils # (auto) 3.8 10 ^3/uL (1.6-8.6); Neutrophils % (auto) 57.2 % (37.0-80.0); Platelet Count (auto) 209 10^3/uL (140-450); Red Blood Cells 4.47 10^6/uL (4.0-5.20); Red Cell Distribution Width 14.7 % (11.8-14.3); White Blood Cell 6.7 10^3/uL (4.4-10.8)
[2020-05-09 04:37] LABS: INR 0.99 (0.9-1.15); Partial Thromboplastin Time 27.1 sec (23.0-31.2)
[2020-05-09 04:43] LABS: Albumin 3.6 g/dL (3.4-5.0); Anion Gap 4 (5-15); Blood Urea Nitrogen 15 mg/dL (7-18); Calcium 8.9 mg/dL (8.5-10.1); Carbon Dioxide 24 mmol/L (21-32); Chloride 110 mmol/L (98-107); Glucose 180 mg/dL (74-106); Magnesium 2.7 mg/dL (1.6-2.6); Potassium 4.1 mmol/L (3.5-5.1); Sodium 138 mmol/L (136-145)
[2020-05-09 04:49] LABS: Alanine Aminotransferase 20 U/L (13-56); Alkaline Phosphatase 87 U/L (45-117); Aspartate Aminotransferase 13 U/L (15-37); BUN/Creatinine Ratio 16.3; Bilirubin, Total 0.7 mg/dL (0.2-1.0); GFR African American 80 mL/min; GFR Non-African American 66 mL/min; Total Protein 7.5 g/dL (6.4-8.2)
[2020-05-09] MEDS ORDERED: MORPHINE SULF INJ 2 MG/ML SYRINGE 1ML IV PRN (08:15)
[2020-05-09] MEDS ORDERED: ACETAMINOPHEN 325 MG TAB PO PRN (08:15)
[2020-05-09] MEDS ORDERED: NITROGLYCERIN 0.4 MG SL TAB SL PRN (08:15)
[2020-05-09] MEDS ORDERED: HYDROcodone-ACET 5/325MG TAB PO PRN (08:15)
[2020-05-09] MEDS ORDERED: MORPHINE SULFATE 4 MG/ML SYR/VIAL IV PRN (08:15)
[2020-05-09] MEDS ORDERED: DOCUSATE SOD 100 MG CAP PO PRN (08:15)
[2020-05-09] MEDS ORDERED: DEXTROSE (50%) 50ML SYRG IV PRN (08:15)
[2020-05-09] MEDS: SODIUM CHLORIDE 0.9% 1,000 ML IV SCH (08:15)
[2020-05-09] MEDS ORDERED: ONDANSETRON HCL 4 MG/2 ML VIAL IV PRN (08:15)
[2020-05-09] MEDS: FAMOTIDINE 20 MG TAB PO SCH ×2 (10:00→22:44)
[2020-05-09] MEDS: ENOXAPARIN SOD 40 MG/0.4 ML SYRINGE SC SCH (10:00)
[2020-05-09 10:26] LABS: Basophils # (auto) 0 10 ^3/uL (0-0.2); Basophils % (auto) 0.2 % (0.0-2.0); Eosinophils # (auto) 0.1 10 ^3/uL (0-0.8); Hematocrit 38.8 % (36.0-46.0); Hemoglobin 13.1 g/dL (12.2-16.2); Lymphocytes # (auto) 2.3 10 ^3/uL (0.4-5.4); Lymphocytes % (auto) 37.2 % (10.0-50.0); Mean Corpuscular Hemoglobin 29.7 pg (28.0-32.0); Mean Corpuscular Hgb Conc. 33.9 g/dL (32.0-36.0); Mean Corpuscular Volume 87.6 fL (80.0-100.0); Monocytes # (auto) 0.5 10 ^3/uL (0-1.3); Neutrophils # (auto) 3.3 10 ^3/uL (1.6-8.6); Neutrophils % (auto) 52.6 % (37.0-80.0); Nucleated Red Blood Cells % 0.1 %; Platelet Count (auto) 205 10^3/uL (140-450); Red Blood Cells 4.42 10^6/uL (4.0-5.20); Red Cell Distribution Width 14.4 % (11.8-14.3); White Blood Cell 6.3 10^3/uL (4.4-10.8)
[2020-05-09 11:01] LABS: Potassium 3.6 mmol/L (3.5-5.1)
[2020-05-09] MEDS: InsuLIN REG 1unit/0.01ml Soln (100units/ml) SC SCH ×2 (11:30→16:31)
[2020-05-09 11:33] LABS: Albumin 3.6 g/dL (3.4-5.0); BUN/Creatinine Ratio 19.5; Bilirubin, Total 0.7 mg/dL (0.2-1.0); Calcium 8.9 mg/dL (8.5-10.1); Total Protein 7.6 g/dL (6.4-8.2)
[2020-05-09] MEDS: ACCU-CHEK COMFORT CURVE STRIP VI SCH ×3 (11:37→22:35)
[2020-05-09] MEDS ORDERED: amLODIPine BESYLATE 5 MG TAB PO ONE (12:45)
[2020-05-09] MEDS ORDERED: InsuLIN REG 1unit/0.01ml Soln (100units/ml) SC SCH (22:00)
[2020-05-10] MEDS: SODIUM CHLORIDE 0.9% 1,000 ML IV SCH (01:25)
[2020-05-10] MEDS: ACCU-CHEK COMFORT CURVE STRIP VI SCH ×2 (06:37→11:30)
[2020-05-10] MEDS: InsuLIN REG 1unit/0.01ml Soln (100units/ml) SC SCH ×2 (06:38→11:30)
[2020-05-10 07:46] LABS: Basophils # (auto) 0 10 ^3/uL (0-0.2); Basophils % (auto) 0.4 % (0.0-2.0); Eosinophils # (auto) 0.2 10 ^3/uL (0-0.8); Hematocrit 40.8 % (36.0-46.0); Hemoglobin 13.8 g/dL (12.2-16.2); Lymphocytes # (auto) 2.4 10 ^3/uL (0.4-5.4); Mean Corpuscular Hemoglobin 29.4 pg (28.0-32.0); Mean Corpuscular Hgb Conc. 33.7 g/dL (32.0-36.0); Mean Corpuscular Volume 87.3 fL (80.0-100.0); Monocytes # (auto) 0.4 10 ^3/uL (0-1.3); Monocytes % (auto) 7.3 % (0.0-12.0); Neutrophils # (auto) 2.4 10 ^3/uL (1.6-8.6); Neutrophils % (auto) 44.3 % (37.0-80.0); Nucleated Red Blood Cells % 0.1 %; Platelet Count (auto) 210 10^3/uL (140-450); Red Blood Cells 4.68 10^6/uL (4.0-5.20); Red Cell Distribution Width 14.4 % (11.8-14.3); White Blood Cell 5.5 10^3/uL (4.4-10.8)
[2020-05-10 07:56] LABS: Potassium 3.6 mmol/L (3.5-5.1)
[2020-05-10 08:04] LABS: Albumin 3.8 g/dL (3.4-5.0); BUN/Creatinine Ratio 20.3; Bilirubin, Total 1.1 mg/dL (0.2-1.0); Total Protein 8.1 g/dL (6.4-8.2)
[2020-05-10] MEDS: ENOXAPARIN SOD 40 MG/0.4 ML SYRINGE SC SCH (08:39)
[2020-05-10] MEDS: FAMOTIDINE 20 MG TAB PO SCH ×2 (08:39→08:48)
[2020-05-10] MEDS ORDERED: amLODIPine BESYLATE 5 MG TAB PO SCH (10:00)
[2020-05-10] MEDS ORDERED: ASPirin 81 mg TAB PO SCH (10:00)
[2020-05-10 12:55] VITALS: BP 115/63
[2020-05-10] MEDS: CLOPIDOGREL 300 MG TAB PO ONE ×2 (14:37→14:38)
== END 2020-05-10 14:46 | disposition home or self-care (01) | DRG 880 ==
LOC: EDBD 00:51 → ER 00:51 → TELE 00:52
PROVIDERS: ADMIT Nurse Practitioner Family; ATTEND Internal Medicine Cardiovascular Disease
DX: F41.9 Anxiety disorder, unspecified (principal); I13.0 Hypertensive heart and chronic kidney disease with heart failure and stage 1 through stage 4 chronic kidney disease, or unspecified chronic kidney disease; N39.0 Urinary tract infection, site not specified; R07.89 Other chest pain; E11.22 Type 2 diabetes mellitus with diabetic chronic kidney disease; E11.65 Type 2 diabetes mellitus with hyperglycemia; E66.01 Morbid (severe) obesity due to excess calories; E78.5 Hyperlipidemia, unspecified; G89.29 Other chronic pain; I25.10 Atherosclerotic heart disease of native coronary artery without angina pectoris; I50.9 Heart failure, unspecified; J45.909 Unspecified asthma, uncomplicated; N18.9 Chronic kidney disease, unspecified; E03.9 Hypothyroidism, unspecified; E78.00 Pure hypercholesterolemia, unspecified; F32.9 Major depressive disorder, single episode, unspecified; Z20.828 Contact with and (suspected) exposure to other viral communicable diseases; I25.2 Old myocardial infarction; Z90.710 Acquired absence of both cervix and uterus; Z95.5 Presence of coronary angioplasty implant and graft; Z88.0 Allergy status to penicillin; Z88.2 Allergy status to sulfonamides
CPT/HCPCS: 36415; 71045; 74176; 80053; 82962; 83036; 83735; 83880; 84443; 84484; 85025; 85379; 85610; 85730; 87086; 87426; 93005; 96360; 99291; G0378; J2405

== ENCOUNTER → 2020-05-18 | Outpatient (CLI) | payer MEDICARE, MEDICAID | END | disposition home or self-care (01) | LOC: Rad HDHVI 11:16 | PROVIDERS: ATTEND Internal Medicine Cardiovascular Disease | DX: I67.82 Cerebral ischemia (principal); I67.2 Cerebral atherosclerosis; H05.20 Unspecified exophthalmos; R51.9 Headache, unspecified; M19.09 Primary osteoarthritis, other specified site; M26.69 Other specified disorders of temporomandibular joint | CPT/HCPCS: 70450 ==

== ENCOUNTER → 2020-05-29 | Outpatient (CLI) | payer MEDICARE, MEDICAID ==
[~2020-05-29] VITALS: Ht 154.9 cm; Wt 83.0 kg
[~2020-05-29] MED LIST changes: +ALBUAER3 IN; +INSLISPI SC; +LINA1CAP2 PO; +ROSU40TA PO
[2020-05-29 09:24] VITALS: BP 127/60
[2020-05-29 09:46] VITALS: BP 119/58
[2020-05-29 12:12] LABS: Basophils # (auto) 0 10 ^3/uL (0-0.2); Basophils % (auto) 0.2 % (0.0-2.0); Eosinophils # (auto) 0.1 10 ^3/uL (0-0.8); Eosinophils % (auto) 2.9 % (0.0-7.0); Hematocrit 35.6 % (36.0-46.0); Hemoglobin 12.1 g/dL (12.2-16.2); Lymphocytes # (auto) 1.8 10 ^3/uL (0.4-5.4); Lymphocytes % (auto) 36.6 % (10.0-50.0); Mean Corpuscular Hemoglobin 29.8 pg (28.0-32.0); Mean Corpuscular Hgb Conc. 33.9 g/dL (32.0-36.0); Monocytes # (auto) 0.4 10 ^3/uL (0-1.3); Monocytes % (auto) 8.6 % (0.0-12.0); Neutrophils # (auto) 2.6 10 ^3/uL (1.6-8.6); Neutrophils % (auto) 51.7 % (37.0-80.0); Nucleated Red Blood Cells % 0.1 %; Platelet Count (auto) 191 10^3/uL (140-450); Red Blood Cells 4.04 10^6/uL (4.0-5.20); Red Cell Distribution Width 14.5 % (11.8-14.3)
[2020-05-29 12:22] LABS: INR 0.95 (0.9-1.15); Partial Thromboplastin Time 28.2 sec (23.0-31.2)
[2020-05-29 12:24] LABS: Potassium 3.9 mmol/L (3.5-5.1)
[2020-05-29 12:27] LABS: Free T4 (Free Thyroxine) 0.96 ng/dL (0.89-1.76)
[2020-05-29 12:32] LABS: Urine Blood Negative /uL (Negative); Urine Specific Gravity 1.023 (1.001-1.035)
[2020-05-29 12:40] LABS: Albumin 3.5 g/dL (3.4-5.0); BUN/Creatinine Ratio 20.5; Bilirubin, Total 0.7 mg/dL (0.2-1.0); Total Protein 7.7 g/dL (6.4-8.2)
== END | disposition home or self-care (01) ==
LOC: Rad HDHVI 09:05
PROVIDERS: ATTEND Internal Medicine Cardiovascular Disease
DX: Z01.812 Encounter for preprocedural laboratory examination (principal); I70.0 Atherosclerosis of aorta; D51.3 Other dietary vitamin B12 deficiency anemia; I11.0 Hypertensive heart disease with heart failure; I50.9 Heart failure, unspecified; E11.9 Type 2 diabetes mellitus without complications; E55.9 Vitamin D deficiency, unspecified; R00.2 Palpitations; R53.1 Weakness; R30.0 Dysuria
CPT/HCPCS: 36415; 71046; 80053; 80061; 81003; 82306; 82607; 83036; 84439; 84443; 85025; 85610; 85730; 93005; G0463

== ENCOUNTER 2020-06-04 07:11 | Day surgery (SDC) | payer MEDICARE, MEDICAID ==
[~2020-06-04] VITALS: Ht 154.9 cm; Wt 83.0 kg
[~2020-06-04 07:11] MED LIST changes: -DOCU1CAP46 PO; -INSUINJ47 SC; -LORA2TAB12 PO
[2020-06-04] MEDS ORDERED: IOHEXOL 350 MG/ML 100ML IJ ONE ×2 (07:46→10:26)
[2020-06-04] MEDS ORDERED: ANGIOMAX 250 MG VIAL IV ONE (10:21)
[2020-06-04] MEDS ORDERED: LIDOCAINE 2%HCL (LOCAL ANESTH.) INJ 20ML MDV ONE (10:21)
[2020-06-04] MEDS ORDERED: MIDAZOLAM HCL 1MG/1ML-2 ML VIAL ONE ×2 (10:22→11:01)
[2020-06-04] MEDS ORDERED: SODIUM CHL 0.9% 50 ML ONE (10:22)
[2020-06-04] MEDS ORDERED: fentaNYL CITRATE 100 MCG/2 ML VL ONE (10:22)
[2020-06-04] MEDS ORDERED: diphenhdrAMINE HCL 50 MG/1 ML VL ONE (10:58)
[2020-06-04] MEDS ORDERED: ACETAMINOPHEN 500 MG TAB PO PRN (13:00)
[2020-06-04] MEDS ORDERED: HYDROcodone-ACET 5/325MG TAB PO PRN (13:00)
[2020-06-04] MEDS ORDERED: ONDANSETRON HCL 4 MG/2 ML VIAL IV PRN (13:00)
== END 2020-06-04 14:08 | disposition home or self-care (01) ==
LOC: CATH 07:11
PROVIDERS: ATTEND Internal Medicine Cardiovascular Disease
DX: R07.89 Other chest pain (principal); I25.10 Atherosclerotic heart disease of native coronary artery without angina pectoris; E66.9 Obesity, unspecified; E11.40 Type 2 diabetes mellitus with diabetic neuropathy, unspecified; J44.9 Chronic obstructive pulmonary disease, unspecified; M19.90 Unspecified osteoarthritis, unspecified site; F41.9 Anxiety disorder, unspecified; F32.9 Major depressive disorder, single episode, unspecified; G47.30 Sleep apnea, unspecified; I11.0 Hypertensive heart disease with heart failure; E78.5 Hyperlipidemia, unspecified; Z88.0 Allergy status to penicillin; Z88.1 Allergy status to other antibiotic agents; Z20.822 Contact with and (suspected) exposure to COVID-19; Z79.899 Other long term (current) drug therapy; Z98.890 Other specified postprocedural states; Z90.710 Acquired absence of both cervix and uterus; Z95.5 Presence of coronary angioplasty implant and graft; Z68.34 Body mass index [BMI] 34.0-34.9, adult
CPT/HCPCS: 93458; C1760; C1769; C1887; C1894; J0583; J1200; J1644; J2250; J3010; Q9967; U0003; 99152; 99153

== ENCOUNTER → 2021-05-24 | Outpatient (CLI) | payer MEDICARE, MEDICAID ==
[~2021-05-24] MED LIST changes: +AMLO-496 PO; -AMLO10TA13 PO
== END | disposition home or self-care (01) ==
LOC: LAB 14:48
PROVIDERS: ATTEND Internal Medicine
DX: I20.9 Angina pectoris, unspecified (principal); I10 Essential (primary) hypertension
CPT/HCPCS: 86038; 86431

== ENCOUNTER → 2021-06-07 | Outpatient (CLI) | payer MEDICARE, MEDICAID | END | disposition home or self-care (01) | LOC: XYW 09:35 | PROVIDERS: ATTEND Internal Medicine | DX: I07.1 Rheumatic tricuspid insufficiency (principal); I27.20 Pulmonary hypertension, unspecified; I05.0 Rheumatic mitral stenosis; I35.0 Nonrheumatic aortic (valve) stenosis | CPT/HCPCS: 93306 ==

== ENCOUNTER 2022-03-09 12:33 | Day surgery (SDC) | payer MEDICARE, MEDICAID ==
[2022-03-07 15:23] LABS: Basophils # (auto) 0 10 ^3/uL (0-0.2); Basophils % (auto) 0.4 % (0.0-2.0); Eosinophils # (auto) 0.1 10 ^3/uL (0-0.8); Eosinophils % (auto) 2.1 % (0.0-7.0); Hematocrit 38.4 % (36.0-46.0); Hemoglobin 12.5 g/dL (12.2-16.2); Lymphocytes # (auto) 2.1 10 ^3/uL (0.4-5.4); Lymphocytes % (auto) 39.7 % (10.0-50.0); Mean Corpuscular Hgb Conc. 32.7 g/dL (32.0-36.0); Mean Corpuscular Volume 88.8 fL (80.0-100.0); Monocytes # (auto) 0.3 10 ^3/uL (0-1.3); Monocytes % (auto) 6.3 % (0.0-12.0); Neutrophils # (auto) 2.7 10 ^3/uL (1.6-8.6); Neutrophils % (auto) 51.5 % (37.0-80.0); Nucleated Red Blood Cells % 0.1 %; Red Blood Cells 4.33 10^6/uL (4.0-5.20); White Blood Cell 5.2 10^3/uL (4.4-10.8)
[2022-03-07 15:46] LABS: INR 0.96 (0.9-1.15); Partial Thromboplastin Time 28.3 sec (24.6-33.4)
[2022-03-07 15:54] LABS: Albumin 3.5 g/dL (3.4-5.0); Calcium 8.7 mg/dL (8.5-10.1); Potassium 4.2 mmol/L (3.5-5.1)
[2022-03-07 15:59] LABS: BUN/Creatinine Ratio 27.9; Bilirubin, Total 0.7 mg/dL (0.2-1.0); Total Protein 7.5 g/dL (6.4-8.2)
[~2022-03-09] VITALS: Ht 154.9 cm; Wt 83.5 kg
[~2022-03-09 12:33] MED LIST changes: +CLOP75TA28 PO
[2022-03-09] MEDS ORDERED: SIMETHICONE 40 MG/0.6 ML ORAL DROP ONE (14:26)
[2022-03-09] MEDS ORDERED: FLUMAZENIL 0.1 MG/ML INJ 10ML MDV IV ONE (14:41)
[2022-03-09] MEDS ORDERED: NALOXONE HCL 0.4 MG/ML VIAL ONE (14:41)
[2022-03-09] MEDS ORDERED: fentaNYL CITRATE 100 MCG/2 ML VL ONE ×2 (14:42→14:50)
[2022-03-09] MEDS ORDERED: MIDAZOLAM HCL 5 MG/ML-1ML VIAL ONE (14:42)
[2022-03-09] MEDS ORDERED: diphenhdrAMINE HCL 50 MG/1 ML VL ONE (14:42)
[2022-03-09] MEDS ORDERED: LIDOCAINE VISCOUS 2% 15ML UD ONE (14:45)
[2022-03-09] MEDS ORDERED: MIDAZOLAM HCL 2MG/2ML 2ml VIAL (1mg/ml) ONE (14:50)
[2022-03-09] MEDS ORDERED: LIDOCAINE 1% (LOCAL ANESTH.) PF 5ml SDV ONE (14:56)
[2022-03-09] MEDS ORDERED: PROPOFOL 10 MG/ML 20 ML IV ONE (14:56)
[2022-03-09 15:37] VITALS: BP 126/63
== END 2022-03-09 15:45 | disposition home or self-care (01) ==
LOC: GI 12:33
PROVIDERS: ATTEND Internal Medicine Gastroenterology
DX: R10.84 Generalized abdominal pain (principal); R10.13 Epigastric pain; K29.50 Unspecified chronic gastritis without bleeding; K44.9 Diaphragmatic hernia without obstruction or gangrene; K21.00 Gastro-esophageal reflux disease with esophagitis, without bleeding; J44.9 Chronic obstructive pulmonary disease, unspecified; G47.33 Obstructive sleep apnea (adult) (pediatric); K76.0 Fatty (change of) liver, not elsewhere classified; G89.4 Chronic pain syndrome; I50.9 Heart failure, unspecified; Z20.822 Contact with and (suspected) exposure to COVID-19
CPT/HCPCS: 36415; 43239; 80053; 82962; 85025; 85610; 85730; 88305; 88342; C9803; J2250; J2704; J3010; J7030; U0003; 99152; 99153

== ENCOUNTER 2022-07-06 07:02 | Day surgery (SDC) | payer MEDICARE, MEDICAID ==
[2022-07-04 12:11] LABS: Basophils # (auto) 0 10 ^3/uL (0-0.2); Basophils % (auto) 0.3 % (0.0-2.0); Eosinophils # (auto) 0.1 10 ^3/uL (0-0.8); Eosinophils % (auto) 2.1 % (0.0-7.0); Hematocrit 39.2 % (36.0-46.0); Hemoglobin 13.1 g/dL (12.2-16.2); Lymphocytes # (auto) 2.2 10 ^3/uL (0.4-5.4); Lymphocytes % (auto) 38.4 % (10.0-50.0); Mean Corpuscular Hemoglobin 30.2 pg (28.0-32.0); Mean Corpuscular Hgb Conc. 33.5 g/dL (32.0-36.0); Mean Corpuscular Volume 90.4 fL (80.0-100.0); Monocytes # (auto) 0.4 10 ^3/uL (0-1.3); Monocytes % (auto) 7.5 % (0.0-12.0); Neutrophils % (auto) 51.7 % (37.0-80.0); Nucleated Red Blood Cells % 0.1 %; Red Blood Cells 4.34 10^6/uL (4.0-5.20); Red Cell Distribution Width 14.2 % (11.8-14.3); White Blood Cell 5.7 10^3/uL (4.4-10.8)
[2022-07-04 12:27] LABS: INR 0.93 (0.9-1.15); Partial Thromboplastin Time 28.3 sec (24.6-33.4)
[2022-07-04 13:02] LABS: Potassium 3.9 mmol/L (3.5-5.1)
[2022-07-04 13:24] LABS: Albumin 3.7 g/dL (3.4-5.0); BUN/Creatinine Ratio 25.9; Bilirubin, Total 0.6 mg/dL (0.2-1.0); Calcium 9.4 mg/dL (8.5-10.1); Total Protein 7.7 g/dL (6.4-8.2)
[~2022-07-06] VITALS: Ht 154.9 cm; Wt 78.0 kg
[~2022-07-06 07:02] MED LIST changes: +AMLO-489 PO; -AMLO-496 PO; -FURO1TAB33 PO; -LINA1CAP2 PO; +NITR0.4D5 TD; +PITA2TAB PO; +POTA10TA32 PO; -ROSU40TA PO
[2022-07-06] MEDS ORDERED: IODIXANOL 320MG/ML 100ML BTL IV ONE ×2 (07:32→08:25)
[2022-07-06] MEDS ORDERED: IOHEXOL 350 MG/ML 100ML IJ ONE (07:32)
[2022-07-06] MEDS ORDERED: LIDOCAINE 2%HCL (LOCAL ANESTH.) INJ 20ML MDV ONE (07:34)
[2022-07-06] MEDS ORDERED: MIDAZOLAM HCL 2MG/2ML 2ml VIAL (1mg/ml) ONE ×2 (08:02→08:38)
[2022-07-06] MEDS ORDERED: fentaNYL CITRATE 100 MCG/2 ML VL ONE (08:02)
[2022-07-06] MEDS ORDERED: SODIUM CHL 0.9% 0 ML ONE (08:02)
[2022-07-06] MEDS ORDERED: ANGIOMAX 250 MG VIAL IV ONE (08:02)
[2022-07-06] MEDS ORDERED: MIDAZOLAM HCL 2MG/2ML 2ml VIAL (1mg/ml) IV ONE (09:30)
[2022-07-06] MEDS ORDERED: ACETAMINOPHEN 325 MG TAB PO ONE (11:45)
== END 2022-07-06 11:50 | disposition home or self-care (01) ==
LOC: CATH 07:02
PROVIDERS: ATTEND Internal Medicine
DX: R07.89 Other chest pain (principal); I10 Essential (primary) hypertension; E11.9 Type 2 diabetes mellitus without complications; E78.5 Hyperlipidemia, unspecified; Z79.899 Other long term (current) drug therapy; Z79.84 Long term (current) use of oral hypoglycemic drugs; Z20.822 Contact with and (suspected) exposure to COVID-19
CPT/HCPCS: 36415; 80053; 85025; 85610; 85730; 93460; C1751; C1760; C1769; C1887; C1894; J1644; J2250; J3010; Q9967; U0003; 99152; 99153

== ENCOUNTER 2023-10-20 19:02 | Emergency (ER) | payer MEDICARE, MEDICAID ==
[~2023-10-20] VITALS: Ht 154.9 cm; Wt 84.3 kg
[~2023-10-20 19:02] MED LIST changes: +ALPR1TAB2 PO; -AMLO-489 PO; +AMLO1TAB22 PO; +ASPI-325 PO; +CHOL20007 OR; +CLOP75TA28; +FOLI-119 PO; -FOLI1TAB6 PO; +FURO40TA4 PO; +INSU100I4 SC; +INSUINJ37 SC; +LEVO50TA7 PO; +LORA-1105 PO; +MAGN400T40 PO; +NITR100C6 PO; +PANT40T PO; +POTA-228 PO; -POTA10TA32 PO; +ROSU40TA81 PO
[2023-10-20] MEDS ORDERED: NAP500T PO (20:09)
[2023-10-20 20:22] LABS: Urine Bacteria FEW /hpf (None Seen); Urine Blood Negative /uL (Negative); Urine Clarity Turbid (Clear); Urine Color Yellow (Yellow); Urine Hyaline Cast FEW /lpf (0 - 2); Urine Mucus FEW (None Seen); Urine Protein, UAD TRACE (Negative); Urine Urobilinogen Normal (Negative); Urine WBC 3 /hpf (0 - 5)
[2023-10-20] MEDS: KETOROLAC TROMETH 60MG/2ML VIAL IM ONE (22:13)
[2023-10-20 22:14] VITALS: BP 145/68; PULSE 75; RESP 20; TEMP 97.4; O2SAT 96
== END 2023-10-20 22:24 | disposition home or self-care (01) ==
LOC: ER 19:04
DX: M26.601 Right temporomandibular joint disorder, unspecified (principal); H11.31 Conjunctival hemorrhage, right eye; E11.22 Type 2 diabetes mellitus with diabetic chronic kidney disease; I13.0 Hypertensive heart and chronic kidney disease with heart failure and stage 1 through stage 4 chronic kidney disease, or unspecified chronic kidney disease; N18.9 Chronic kidney disease, unspecified; I50.89 Other heart failure; J45.909 Unspecified asthma, uncomplicated; E78.5 Hyperlipidemia, unspecified; Z90.710 Acquired absence of both cervix and uterus
CPT/HCPCS: 81001; 82962; 93005; 96372; 99284; J1885